=== PATIENT | male | born 1950 | race Caucasian/White ===

== ENCOUNTER → 2024-02-13 12:12 | Outpatient (REF) | payer MEDICARE, SELFPAY | LOC: RAD 12:12 | PROVIDERS: ATTENDING PHYSICIAN Internal Medicine Cardiovascular Disease; OTHER PHYSICIAN Family Medicine | DX: I65.22 Occlusion and stenosis of left carotid artery (principal) | CPT/HCPCS: 93880 ==

== ENCOUNTER → 2024-03-06 12:54 | Outpatient (REF) | payer MEDICARE, SELFPAY | LOC: HWRAD 12:54 | PROVIDERS: ATTENDING PHYSICIAN Surgery Vascular Surgery; FAMILY PHYSICIAN Family Medicine | DX: I65.23 Occlusion and stenosis of bilateral carotid arteries (principal) | CPT/HCPCS: 70496; 70498; Q9967 ==

== ENCOUNTER 2024-05-12 06:14 | Inpatient (IN) | payer MEDICARE, SELFPAY ==
[2024-05-07 09:19] VITALS: BMI 27.5
[2024-05-07 10:22] LABS: % Basophils 0.4 % (0-2); % Eosinophils 1.5 % (0-6); % Immature Granulocytes 0.6 % (0-0.5); % Lymphocytes 17.4 % (20.5-51.1); % Monocytes 10.4 % (1.7-9.3); % Neutrophils 69.7 % (42.2-75.2); Absolute Eosinophils 0.1 10^3/uL (0-0.7); Absolute Lymphocytes 0.9 10^3/uL (1.2-3.4); Absolute Monocytes 0.6 10^3/uL (0.1-0.6); Absolute Neutrophils 3.8 10^3/uL (1.4-6.5); Hematocrit 45.4 % (39.0-52.0); Hemoglobin 15.4 g/dL (13.0-18.0); Mean Corp Hgb Conc. 33.9 g/dL (33.0-37.0); Mean Corpuscular Hgb 30.9 pg (27.0-31.0); Mean Platelet Volume 9.4 fL (7.4-10.4); Nucleated Red Blood Cells % 0 % (-); Platelet Count 161 10^3/uL (130-400); Red Blood Cell Count 4.99 10^6/uL (4.70-6.10); Red Cell Dist. Width 13.4 % (11.5-14.5); White Blood Cell Count 5.4 10^3/uL (4.8-10.8)
[2024-05-07 10:31] LABS: INR 1.11; PT 14.4 Sec (11.4-14.6)
[2024-05-07 10:32] LABS: APTT 35.5 Sec (23.4-35.0)
[2024-05-07 10:55] LABS: Blood Urea Nitrogen 27 mg/dl (9-20); Calcium 9.7 mg/dl (8.4-10.2); Carbon Dioxide 30 mmol/L (22-30); Chloride 101 mmol/L (98-107); Estimated Creatinine Clearance 47 ml/min; Glucose 108 mg/dl (70-99); Potassium 5.3 mmol/L (3.5-5.1); Sodium 141 mmol/L (135-145); eGFR 56.93
[2024-05-12] VITALS (9 sets, daily range): BP systolic 125–163; BP diastolic 66–118; BMI 27.5
[2024-05-12] MEDS: PERIDEX 0.12% ORAL RINSE 15 ML PO (07:05)
[2024-05-12] MEDS: BACTROBAN NASAL 1 GRAM NASAL (07:05)
[2024-05-12] MEDS: NSS 500 IV (07:05)
--- NOTE | 2024-05-12 07:07 | HP.FOC2 ---
Focused History & Physical
Chief Complaint
HPI:
Chief Complaint: Left carotid stenosis
HPI / Indication for Planned Procedure: This is a 74-year-old male who presents today for scheduled procedure of a left carotid endarterectomy for asymptomatic left carotid stenosis. He reports he is in good health and denies recent
hospitalization, trauma, or illness. He reports no changes in medications since last seen in the office.
Relevant Past Medical History: Other (Gout, insomnia, nasal fracture, basal cell carcinoma, colon polyps, low vitamin D, depression, migraines, BPH, paroxysmal atrial fibrillation)
Relevant Social History: Negative
Relevant Family History: Positive for (Paternal hyperlipidemia and abdominal aortic aneurysm, maternal lung cancer)
Relevant Past Surgical History: Positive for (Cholecystectomy, tonsillectomy, colonoscopy, nasal cauterization, right TKA, right L4-L5 interlaminar epidural, right hip replacement)
Review of Systems
Review of Pertinent Systems: All Systems Negative
Medication
See Medication form for detailed medications: Yes
Medication List (including Herbals & OTC):
allopurinol 300 mg tablet 300 mg PO NOON 10/07/16
fluoxetine 40 mg capsule (Prozac) 40 mg PO NOON 10/07/16
atorvastatin 10 mg tablet 10 mg PO NOON 09/25/18
finasteride 5 mg tablet 5 mg PO QPM 09/25/18
metoprolol tartrate 25 mg tablet 25 mg PO NOON 09/25/18
niacinamide 500 mg tablet 500 mg PO DAILY 09/25/18
omeprazole 40 mg capsule,delayed release 40 mg PO DAILY 09/25/18
cholecalciferol (vitamin D3) 50 mcg (2,000 unit) tablet 2,000 units PO NOON 06/27/20
polyethylene glycol 3350 17 gram oral powder packet 17 grams PO PRN PRN constipation 06/27/20
tamsulosin 0.4 mg capsule 0.4 mg PO NOON 06/27/20
docusate sodium 100 mg capsule 100 mg PO DAILY PRN CONSTIPATION 05/04/24
magnesium 200 mg tablet 400 mg PO NOON 05/04/24
metformin 500 mg tablet 500 mg PO BID 05/04/24
rivaroxaban 20 mg tablet (Xarelto) 20 mg PO NOON 05/04/24
ropinirole 3 mg tablet 3 mg PO HS 05/04/24
sennosides 8.6 mg tablet (senna) 8.6 mg PO PRN PRN CONSTIPATION 05/04/24
Medications Reviewed: Yes
Allergies and Reactions
Patient has Allergies: Yes
Noted Allergies and Reactions:
Allergy/AdvReac Type Severity Reaction Status Date / Time
Sulfa (Sulfonamide Allergy Unknown - Verified 05/04/24 16:16
Antibiotics) a long
time ago
Pertinent Physical Exam
All Other Systems: Negative
Head/Neck: Normal
Lungs: Normal (Bilateral lungs clear to auscultation)
Heart: Normal (RRR, S1-S2, no murmurs, bilateral DP +2 palpable)
Abdomen: Normal (Nontender and nondistended)
Extremities: Normal
Neurological: Normal
Diagnosis / Assessment
Assessment: 74-year-old male with left carotid stenosis
Plan / Procedure
Plan:
Will proceed as scheduled for left carotid endarterectomy with Dr. Johny Jaeger III
Anesthesia/Sedation to be done by Anesthesia Provider: Yes
--- NOTE | 2024-05-12 08:08 | W.SUR.PREOP ---
Pre-Operative Surgical Note
-
I have examined this patient prior to the performance of the scheduled procedure.
The patient's condition is unchanged from the time of the current History and
Physical and the patient is able to undergo the scheduled procedure.
[2024-05-12 08:55] LABS: ACT-LR - POC 306 Seconds (116-155)
[2024-05-12 09:30] LABS: ACT-LR - POC 271 Seconds (116-155)
--- NOTE | 2024-05-12 10:04 | W.SUR.POST ---
Surgical Immediate Post Op
Note
Pre Op Diagnosis: LEFT Carotid Stenosis
Post Op Diagnosis: LEFT Carotid Stenosis
Procedure Performed: LEFT Carotid Endarterectomy
Primary Surgeon: Johny Jaeger MD
Secondary Surgeons: Cliff Amaro MD, PhD
Anesthesia: Per Anesthesia
Estimated Blood Loss: 50 cc
Fluids: Per Anesthesia
Drains/Shunts: None
Specimens/Cultures: None
Doppler/Duplex/Angio (Y/N): None
Complications: None
Operative Findings: Uncomplicated LEFT carotid endarterectomy
--- NOTE | 2024-05-12 10:15 | OR.RPT ---
Operative Report
Operative Report
Date of Operation: 05/12/2024
Pre Op Diagnosis: High-grade stenosis left internal carotid artery, asymptomatic
Post Op Diagnosis: High-grade stenosis left internal carotid artery, asymptomatic
Procedure: LEFT carotid endarterectomy with patch angioplasty using bovine pericardium
Surgeon: Johny Jaeger III, MD
Medicaid Service Coordinator: Cliff Amaro MD PhD PGY-6
Anesthesia: General
Complications: None
Estimated blood loss: 50 cc
History and Indications for Procedure: 74-year-old male with high-grade stenosis of the left internal carotid artery.
Procedure in Detail: Angelo Garcia was correctly identified and placed supine on the operating table. After adequate induction of anesthesia the left neck was positioned, prepped and draped in the usual sterile fashion. Preoperative antibiotics were
administered. A timeout procedure was performed with the nursing and anesthesia staff confirming the patients identity as well as the nature and laterality of the procedure.
The carotid bifurcation was marked with ultrasound at the beginning of the case. The incision was planned accordingly. An incision was made along the anterior border of the left sternocleidomastoid muscle. Electrocautery was used to divide the
subcutaneous tissue and platysma. The carotid sheath was entered with sharp dissection. The internal jugular vein was retracted laterally. The vagus nerve was identified and protected throughout the case. The common carotid artery was identified at
the base of this incision and carefully encircled with a vessel loop. The patient was systemically heparinized. The dissection was continued distally towards the carotid bifurcation. The facial vein was skeletonized, ligated and divided between silk
ties and clips. There was a small tear near the crotch of the facial vein and internal jugular vein which was successfully repaired with interrupted 5-0 Prolene sutures. The proximal external carotid artery was encircled with a vessel loop. The
distal internal carotid artery was encircled with a vessel loop at a soft spot on the artery beyond the plaque. The hypoglossal nerve was identified and protected.
The internal vessel loop was secured followed by the common and external. An arteriotomy was made on the distal common carotid artery with an 11-blade. This was extended proximally and distally with Lovett scissors. The arteriotomy was extended
distally through the plaque to an area of normal appearing internal carotid artery. The distal vessel loop was replaced with a short tip hockey-stick type vascular clamp. An endarterectomy was performed with a Corinth elevator in the standard
fashion. The proximal extent of the plaque was transected with scissors. The distal end of the plaque in the internal carotid artery feathered very nicely with no distal intimal flap identified. The plaque extending into the external carotid artery
was everted. Once the plaque was fully removed the endarterectomy plane was irrigated with heparinized saline and any loose fronds of tissue were removed. A pre-cut piece of bovine pericardium was sewn in place using a running 6-0 Prolene suture.
Prior to the completion of the patch the common carotid was allowed to forward bleed and the external was allowed to back bleed. The area under the patch was irrigated with heparinized saline to remove any potential thrombus or debris. The
anastomosis was completed.
The external vessel loop was released first, followed by the common and then the internal. There was an excellent pulse in the distal internal carotid artery. An excellent quality Doppler signal in the distal internal carotid artery was also
confirmed. The patch suture line was closely inspected for hemostasis and was achieved. Protamine was administered. Hemostasis was achieved in the wound bed. The wound was irrigated with saline solution.
The wound was then closed in layers. Sterile dressings were applied. The patient awoke from anesthesia with no immediate neuro deficits and was taken to the PACU in stable condition.
Attestation: I was present and responsible for the entire procedure
Signed: Johny Jaeger III, MD
[facility]
[phone] (prhs)
[2024-05-12 10:35] LABS: Glucose - Point of Care 128 mg/dl (70-99)
[2024-05-12] MEDS: CARDENE 200 IV (10:58)
[2024-05-12 11:00] LABS: Hematocrit 40.1 % (39.0-52.0); Hemoglobin 13.8 g/dL (13.0-18.0); Mean Corp Hgb Conc. 34.4 g/dL (33.0-37.0); Mean Corpuscular Hgb 30.3 pg (27.0-31.0); Mean Corpuscular Volume 87.9 fL (80.0-94.0); Mean Platelet Volume 9.1 fL (7.4-10.4); Platelet Count 145 10^3/uL (130-400); Red Blood Cell Count 4.56 10^6/uL (4.70-6.10); Red Cell Dist. Width 13.7 % (11.5-14.5); White Blood Cell Count 10.1 10^3/uL (4.8-10.8)
--- NOTE | 2024-05-12 11:09 | W.PN.UPDATE ---
Update Note
Progress Note Update
Patient seen and examined in the recovery room. He is awake and alert. Able to move upper extremities at the shoulder and elbow. He has inability to move the wrist and fingers on the right. Normal motor function in the left hand. Gross motor
function in the legs is intact and symmetric. No facial asymmetry. No complaints otherwise.
Will proceed with stat CT angiogram of the head and neck
MRI of the brain has been ordered
I communicated with neurology who will see the patient
I updated his .
Johny Jaeger III, MD
[facility]
[phone] (dpss)
[2024-05-12 11:10] LABS: APTT 31.6 Sec (23.4-35.0); INR 1.08; PT 13.8 Sec (11.4-14.6)
[2024-05-12 11:17] LABS: Blood Urea Nitrogen 22 mg/dl (9-20); Calcium 8.5 mg/dl (8.4-10.2); Carbon Dioxide 25 mmol/L (22-30); Chloride 105 mmol/L (98-107); Estimated Creatinine Clearance 55 ml/min; Glucose 139 mg/dl (70-99); Potassium 4.7 mmol/L (3.5-5.1); Sodium 139 mmol/L (135-145); eGFR > 60.00
[2024-05-12] MEDS: NSS 1000 IV ×2 (11:53→23:53)
--- NOTE | 2024-05-12 12:00 | PTCARENOTE ---
received pt from vascular lab , post L CEA , pt NSR on monitor , BP elevated and 160s , on Cardene gtt for goal < 165, NIHSS on arrival 2, at bedside
--- NOTE | 2024-05-12 12:09 | PTCARENOTE ---
Patient was transported to cat-scan after given ICU report. He remains stable on Cardene 2.5mg/hr 12.5cc. He denies any pain some improvement to right arm movement, unable to make a fist or move right hand. Post cat-scan patient was transported to
ICU
[2024-05-12] MEDS: NOVOLOG FLEXPEN-LOW RESISTANCE SC (12:18)
--- NOTE | 2024-05-12 12:19 | W.PN.INTV ---
Today's Communication / Plan
Recommendations
Monitor patient following his Left Carotid Endarterectomy. Move forward with discharge once patient reaches his functional baseline.
Assessment
-
Assessment: Patient is a 74-year-old male who is seen for a elective left carotid endarterectomy with patch angioplasty using bovine pericardium for asymptomatic left carotid stenosis. He has a past medical history of paroxysmal atrial
fibrillation, BPH, basal cell carcinoma, gout, insomnia, nasal fracture, colon polyps, diverticulosis, depression, and migraines. Patient has undergone cholecystectomy, tonsillectomy, nasal cauterization, and right hip replacement. Following
completion of the procedure the patient awoke from anesthesia with no immediate neurological deficits and was taken to the PACU in stable condition. In the recovery room the patient was able to move his upper extremities at the shoulder and elbow
but was unable to move his wrist and fingers on the right side. There was normal motor function in the left hand and gross motor function in the legs is intact and symmetric. No facial asymmetry seen. Patient transferred to the ICU for further
monitoring.
Chronic Medical Conditions: Paroxysmal atrial fibrillation, essential hypertension, BPH, basal cell carcinoma, gout, insomnia, nasal fracture, colon polyps, diverticulosis, depression, migraines,
Impression:
#Right wrist and finger weakness
#Left Carotid Stenosis
S/P Left Carotid Endarterectomy on 05/02/24
#Paroxysmal atrial fibrillation
#Diverticulosis
#Essential hypertension
Plan:
-Postoperative surgical intensive care unit monitoring
-Supplemental oxygen as needed
-Incentive spirometry
-Aspiration precautions
-Nebulizer use if needed�currently not bronchospastic
-Chest x-ray on 05/07 showed no active pulmonary process
-Neuro and vascular checks as per protocol
-Left hand and wrist weakness - CT head showed no acute pathology - MRI ordered
-Neurology consulted
-Vascular surgery following- correspondence and operative notes reviewed
-Monitor blood pressure
-Allow for mild permissive hypertension
-Cardene drip if needed
-Follow hemoglobin - currently 13.8 on 05/12
-Patient hemodynamically stable
-Follow blood glucose - currently 139 on 05/12
-Low resistance Insulin sliding scale initiated
-DOACs being held until cleared by vascular surgery
-1800 calorie diabetic diet
-Early mobilization as tolerated
Data:
CXR on 05/07/2024: No active pulmonary process. No focal airspace disease. No pleural effusions or pneumothorax.
CT head and neck angio without IV contrast on 05/12/2024: No acute pathology identified. No evidence of M1 nor M2 occlusion. No carotid dissection. Postsurgical change of the left neck. Multilevel degenerative disc disease of the cervical spine.
Subjective Dataa
Subjective Data
Date of Service:
Date of Service: May 12, 2024
Patient is calm and pleasant in conversation. He denies any pain. He notes some improvement to right arm movement but is unable to make a fist and has difficulty moving his right hand.
Objective Data
Data Reviewed
Vital Signs / I&O / Oxygen:
Vital Signs
Temp Pulse Resp BP Pulse Ox
98.2 F 82 14 148/79 96
05/12/24 11:00 05/12/24 11:00 05/12/24 11:00 05/12/24 11:00 05/12/24 11:00
Intake and Output
05/11/24 05/12/24 05/13/24
06:59 06:59 06:59
Intake Total 200 / 200
Balance 200 / 200
SaO2 96
Nasal Cannula flow liters per 2
minute
Physical Exam
General: Comfortable
HEENT: Normocephalic and Anicteric
Cardiovascular: Regular Rhythm
Respiratory: Clear and Non-Labored Respirations
GI: Soft, Non Distended, Non Tender and Normal Bowel Sounds
Neurology: Awake, Alert and Oriented
Labs/Micro/Reports
Lab Data
05/12/24 10:43
05/12/24 10:43
Laboratory Results
05/12/24
10:43
PT 13.8
INR 1.08
APTT 31.6
--- NOTE | 2024-05-12 12:34 | CON.NEURO4 ---
Addendum entered and electronically signed by Becky Knowles DO 05/12/24 14:38:
I have personally examined the patient. I agree with the CUTTING MACHINE TENDER HELPER's Note.
My addenda:
74 year-old male with R hand>R upper arm weakness and some RUE dysmetria s/p L CEA done earlier today. Agree with exam as documented below; NIHSS is 2. Agree with differential. CTA negative for LVO. MRI brain pending. LDL/HgbA1C ordered.
Continue atorvastatin. Anticoagulation is on hold s/p surgery. Reviewed with vascular--cleared for ASA 81mg daily; will give now. Needs PT/OT evaluations, Nihss/neurochecks. No need for echo as it will not change management lead. Reviewed at length
with patient and his . Will c/t follow.
Original Note:
Documented by User: Luisa Keating NP 05/12/24 14:21
Consultation - Neurology 4
-
CONSULTING PHYSICIAN: Becky Knowles DO
REFERRING PHYSICIAN: Vascular Surgery/Dr. Jaeger
DICTATED BY: VICTOR MANUEL Taylor
DATE/TIME OF REQUEST: 05/12/24
DATE/TIME OF CONSULTATION: 05/12/24
Reason for Consultation: RUE weakness
History of Present Illness:
This is a 74-year-old right-handed male who has presented to the hospital today for scheduled left carotid endarterectomy for asymptomatic high-grade left internal carotid stenosis. CTA imaging from 03/06/24 was suggestive of L ICA 80% stenosis. He
is taking Xarelto for paroxysmal Afib and held this medication prior to surgery today, his last dose was on 04/08/24 in the evening. Patient reports that prior to the procedure he felt at his baseline. L CEA was uncomplicated this morning. Upon
awakening postoperatively, his RUE was noted to be newly weak, prompting Neurology consult. Patient denies paresthesias or associated right leg symptoms. CTA head/neck was obtained and is negative for any acute abnormality/LVO. He is not a candidate
for TNK/IAT due to major surgery today and no LVO. Patient denies any neck/back pain, headache, dizziness, vision changes, speech/swallow difficulty, numbness, nausea, chest pain, palpitations, and shortness of breath. He denies any history of TIA,
stroke, or RUE weakness like this in the past.
Past Medical History: Paroxysmal Afib (Xarelto), L ICA stenosis, migraines, RLS, syncope, insomnia, BPH, lumbar radiculopathy, elevated blood glucose, GERD, IBS, depression, basal cell carcinoma, colon polyps, nasal fracture, gout, vitamin D
deficiency
Surgical History: Cholecystectomy, tonsillectomy, R TKA, R THR, nasal cauterization, R L4-L5 IL ELFEGO
Family History: Reviewed and noncontributory.
Social History: Drinks one glass of wine daily. Denies tobacco and illicit drug use.
Allergies: Sulfa.
Home Medications: See below.
Review of Symptoms:
Patient denies any fever, headache, chest pain, shortness of breath, GI or symptoms.
�Per the HPI.�All systems are reviewed negative except above.
Physical Exam:
The patient is afebrile, abdomen is nondistended, breathing is unlabored, skin is warm and dry, no edema.
NIH Stroke Scale:
I performed the NIH stroke scale on the patient on 05/12/24 at 1200. The patient scored 2 points on the NIH stroke scale assessment, which were assigned as follows:
Neurologic Examination:
The patient is drowsy postoperatively, opens eyes to voice. He is oriented x 3. He is able to follow commands and answer questions appropriately. There is no aphasia or dysarthria. On cranial nerve assessment, pupils are 3 mm bilateral, round and
reactive to light and accommodation. Visual ravi are full. Extraocular movements are intact. Facial sensations are intact and bilaterally symmetrical, there is no facial asymmetry. Hearing is intact bilaterally to normal conversation volume.
Tongue palate and uvula are midline. Sternocleidomastoid strengths are full bilaterally. Motor strengths are 5/5 left upper, 4/5 right upper, and 5/5 bilateral lower extremities on medical research [place] scale. There is mild pronator drift in the
RUE. No involuntary movement noted. Deep tendon reflexes are 1+ bilateral upper and lower extremities and Babinski is absent bilaterally. Sensations of touch, temperature and vibration are intact and bilaterally symmetrical. There was no extinction
noted on double simultaneous stimulation. Coordination is ataxic by finger to nose in the RUE.
Lab Results: See below.
Neuro Imaging:
1. CTA Head/Neck 05/12/24: No acute pathology identified. No evidence of M1 nor M2 occlusion. No carotid dissection. Postsurgical change of the left neck. Multilevel degenerative disc disease of the cervical spine.
2. CTA head/neck 03/06/24: Approximately 80% stenosis of the proximal left internal carotid artery. No flow-limiting stenosis of the right internal carotid artery. Intracranial vessels show no major branch vessel occlusion, flow-limiting stenosis,
aneurysm formation, or dissection. No acute intracranial abnormality.
Differentials for the patient's presentation include:
1. Acute onset right upper extremity weakness/ataxia in the setting of L CEA today and Xarelto on hold since 05/09/24 concerning for acute small left hemisphere ischemic infarct.
2. Peripheral nerve palsy related to surgical positioning possibly producing RUE weakness but exam findings and lack of sensation change or any discomfort less supportive of this diagnosis.
3. Paroxysmal Afib, Xarelto on hold.
Patient has the following risk factors for their symptoms: Afib (Xarelto on hold), L CEA, HTN, HLD, age
IV Tenecteplase/IAT candidacy: He is not a candidate for TNK/IAT due to major surgery today and no LVO.
Recommendations:
-Resume home Xarelto when cleared postoperatively by Vascular Surgery.
-Permissive hypertension SBP<220, DBP<120 until 1100 tomorrow, then goal normotension. Avoid hypotension.
-MRI brain noncontrast urgent pending.
-NIHSS and neurological checks per unit guidelines.
-Check TTE to complete stroke workup.
-Provide patient with a stroke education packet.
-LDL goal <70. Lipid panel pending. Okay to continue home atorvastatin 10mg daily until results are obtined.
-Goal normoglycemia, hbA1c is pending.
-PT/OT evaluations.
-DVT prophylaxis.
-Will follow pending results.
Discussed patient care with: Dr. Knowles, the patient
Vital Signs and Labs
-
Vital Signs and Labs:
Vital Signs
Temp Pulse Resp BP Pulse Ox
98.2 F 82 14 148/79 96
05/12/24 11:00 05/12/24 11:00 05/12/24 11:00 05/12/24 11:00 05/12/24 11:00
Lab Results
05/12/24 10:43
05/12/24 10:43
PT 13.8 Sec (11.4-14.6) 05/12/24 10:43
INR 1.08 05/12/24 10:43
APTT 31.6 Sec (23.4-35.0) 05/12/24 10:43
Sodium 139 mmol/L (135-145) 05/12/24 10:43
Potassium 4.7 mmol/L (3.5-5.1) 05/12/24 10:43
BUN 22 mg/dl (9-20) H 05/12/24 10:43
Glucose 139 mg/dl (70-99) H 05/12/24 10:43
Calcium 8.5 mg/dl (8.4-10.2) 05/12/24 10:43
Medications
-
Active Medications
Generic Name Dose Route Start Last Admin
Trade Name Freq PRN Reason Stop Dose Admin
Acetaminophen 650 mg 05/12/24 09:12
Acetaminophen 325 Mg Tablet PO 06/09/24 09:11
Q4HPRN PRN
mild pain or temp >/= 100.4 F
Bisacodyl 10 mg 05/12/24 09:12
Bisacodyl 10 Mg Rectal Suppository RECTAL 06/09/24 09:11
DAILYPRN PRN
constipation
Dextrose 12.5 grams 05/12/24 09:58
Dextrose 50% (0.5 Grams/Ml) 50 Ml Syringe IV 06/09/24 09:57
[id number] PRN
hypoglycemia
Protocol
Glucagon 1 mg 05/12/24 09:58
Glucagon 1 Mg Vial IM 06/09/24 09:57
PRN PRN
hypoglycemia
Protocol
Heparin Sodium 5,000 units 05/12/24 20:00
Heparin 5,000 Units/Ml 1 Ml Vial SC 06/09/24 19:59
Q12 IDALIA
Hydromorphone HCl 0.25 mg 05/12/24 07:32
Hydromorphone 0.25 Mg/0.5 Ml Syringe IV 05/13/24 07:32
PACU-Q5MPRN PRN
severe pain
Hydromorphone HCl 0.5 mg 05/12/24 09:12
Hydromorphone 0.5 Mg/0.5 Ml Syringe IV 05/26/24 09:11
Q2HPRN PRN
severe pain
Sodium Chloride 500 mls @ 40 mls/hr 05/12/24 06:00 05/12/24 07:05
Nss IV 05/12/24 18:29 500 mls
.[id number] IDALIA Administration
Parenteral Electrolytes 1,000 mls @ 100 mls/hr 05/12/24 07:45
Normosol-R IV 05/13/24 07:32
PER PROTOCOL IDALIA
Sodium Chloride 1,000 mls @ 80 mls/hr 05/12/24 09:15 05/12/24 11:53
Nss IV 1,000 mls
.[id number] IDALIA Administration
Nicardipine/Sodium Chloride 40 mg in 200 mls @ 0 mls/hr 05/12/24 09:30 05/12/24 10:58
Cardene IV 200 mls
PER PROTOCOL IDALIA Administration
Protocol
Per Protocol
Phenylephrine HCl 50 mg in 250 mls @ 0 mls/hr 05/12/24 09:30
Kailash-Synephrine IV
PER PROTOCOL IDALIA
Protocol
Per Protocol
Insulin Aspart 0 units 05/12/24 11:30 05/12/24 12:18
Insulin Aspart Low Resistance 300 Units/3 Ml Pen.Injctr SC 06/09/24 11:29 Not Given
AC IDALIA
Protocol
Morphine Sulfate 1 mg 05/12/24 07:32
Morphine 2 Mg/Ml Syringe IV 05/13/24 07:32
PACU-Q5MPRN PRN
moderate pain
Ondansetron HCl 4 mg 05/12/24 07:32
Ondansetron 4 Mg/2 Ml Vial IV 05/13/24 07:32
PACU-ONCEPRN PRN
nausea/vomiting
Oxycodone HCl 5 mg 05/12/24 09:12
Oxycodone 5 Mg Regular Release Tablet PO 05/26/24 09:11
Q4HPRN PRN
moderate pain
Sodium Chloride 0 flush 05/12/24 10:00
Sodium Chloride 0.9% (Flush) Syringe IV 06/09/24 09:59
PER PROTOCOL IDALIA
Home Medications
�Medication �Instructions �Recorded
allopurinol 300 mg tablet 300 mg PO NOON 10/07/16
fluoxetine 40 mg capsule (Prozac) 40 mg PO NOON 10/07/16
atorvastatin 10 mg tablet 10 mg PO NOON 09/25/18
finasteride 5 mg tablet 5 mg PO QPM 09/25/18
metoprolol tartrate 25 mg tablet 25 mg PO NOON 09/25/18
niacinamide 500 mg tablet 500 mg PO DAILY 09/25/18
omeprazole 40 mg capsule,delayed 40 mg PO DAILY 09/25/18
release
polyethylene glycol 3350 17 gram 17 grams PO PRN PRN constipation 06/27/20
oral powder packet
tamsulosin 0.4 mg capsule 0.4 mg PO NOON 06/27/20
magnesium 200 mg tablet 400 mg PO NOON 05/04/24
metformin 500 mg tablet 500 mg PO BID 05/04/24
rivaroxaban 20 mg tablet (Xarelto) 20 mg PO NOON 05/04/24
ropinirole 3 mg tablet 3 mg PO HS 05/04/24
sennosides 8.6 mg tablet (senna) 8.6 mg PO PRN PRN CONSTIPATION 05/04/24
NIH Stroke Score
Subsequent NIH Scale
Date of Subsequent NIH Scale: 05/12/24
Time of Subsequent NIH Scale: 12:00
NIH Stroke Score
Level of Consciousness: 0 - Alert
LOC Questions: 0-Answers both correctly
LOC Commands: 0-Performs both correctly
Best Horizontal Gaze: 0-Normal
Visual Ravi: 0=Normal, no visual loss
Facial Palsy: 0=Normal, symmetrical
Motor - Right Arm: 1=Drift < 10 seconds
Motor - Left Arm: 0=No drift 10 seconds
Motor - Right Le-No drift 5 seconds
Motor - Left Le-No drift 5 seconds
Limb Ataxia: 1-Present in one limb
Sensation: 0-Normal
Best Language: 0-No aphasia
Dysarthria: 0-Normal
Extinction and Inattention: 0-No abnormality
Total Score:: 2
Modified Baker (mRS) Score
Modified Baker Scale (mRS): Slight disability. Able to look after own affairs.
Score: 2
Alteplase Contraindication
Inclusion and Exclusion criteria reviewed: Yes
Reasons for NON-Tx with Thrombolytics POSSIBLE Exclusions: Major surgery or serious trauma within proceding 14 days
IAT Contraindications: Imaging doesn't show large vessel occlusion as cause of stroke

Documented by User: Becky Knowles DO 05/12/24 14:26
NIH Stroke Score
NIH Stroke Score
Total Score:: 2
Modified Baker (mRS) Score
Score: 2
[2024-05-12] MEDS: TYLENOL 650 MG PO (14:33)
[2024-05-12] MEDS: ASPIR LOW (ENTERIC COATED) 81 MG PO (15:54)
[2024-05-12 16:26] LABS: HDL Cholesterol 59 mg/dl; LDL Cholesterol, Calculated 58 mg/dl; Total Cholesterol 131 mg/dl (50-199); Triglyceride 71 mg/dl (10-149); Very Low Density Lipoprotein 14 mg/dl (0-30)
--- NOTE | 2024-05-12 16:46 | PTCARENOTE ---
pt NIHSS now 0 , he continues to have weak hand grasp on R , seen by neurology , off Cardene gtt for 3 hours and now back on his BP 165 and above , he stated he did not take any of his medications today prior to surgery including his
antihypertensives , at bedside , NSR on monitor , occasional afib , at bedside
[2024-05-12 16:48] LABS: Glucose - Point of Care 150 mg/dl (70-99)
[2024-05-12 16:56] LABS: TSH Reflex To Free T4 1.95 uIU/ml (0.47-4.68)
[2024-05-12] MEDS: REQUIP 3 MG PO ×2 (16:56→22:08)
[2024-05-12 17:31] LABS: Folate 7.3 ng/ml (2.76-20); Vitamin B12 461 pg/ml (239-931)
[2024-05-12] MEDS: ROXICODONE 5 MG PO (18:03)
[2024-05-12] MEDS: PROSCAR 5 MG PO (18:03)
[2024-05-12] MEDS: NOVOLOG FLEXPEN-LOW RESISTANCE 1 UNITS SC (18:38)
[2024-05-12] MEDS: HEPARIN 5000 UNITS SC (20:15)
[2024-05-12] MEDS: DILAUDID 0.25 MG IV (20:38)
--- NOTE | 2024-05-12 21:01 | PTCARENOTE ---
patient report received, assessments per work list. handoff NIH completed with off going RN. right hand with weak hand grasp, right arm mildly ataxic. patient c/o intermittent 'tingling' in right arm. c/o teeth pain, mild left neck pain. denies
chest pain, nausea. monitor nsr, Cardene per work list. arterial line with good blood return, waveforms. Tile Layer GLUING MACHINE OPERATOR updated with above changes. ekg completed, one time dose Dilaudid given for pain. lungs clear, diminished@bases. left neck
incision approximated. voiding adequate amounts yellow urine. call ivey in reach
[2024-05-12 21:50] LABS: Glucose - Point of Care 163 mg/dl (70-99)
[2024-05-13] VITALS (10 sets, daily range): BP systolic 105–142; BP diastolic 60–90; PULSE 70–95; O2SAT 94–95; BMI 28.3
--- NOTE | 2024-05-13 00:15 | PTCARENOTE ---
patient reassessed. still with right hand weakness. unable to move fingers, intermittent tingling. able to lift arm off the bed. unchanged from initial assessment. cardene weaned to off, placed on room air. denies pain. call ivey in reach
[2024-05-13 03:35] LABS: Hematocrit 38.7 % (39.0-52.0); Hemoglobin 13.2 g/dL (13.0-18.0); Mean Corp Hgb Conc. 34.1 g/dL (33.0-37.0); Mean Corpuscular Hgb 30.7 pg (27.0-31.0); Mean Platelet Volume 9.5 fL (7.4-10.4); Platelet Count 142 10^3/uL (130-400); Red Cell Dist. Width 13.4 % (11.5-14.5); White Blood Cell Count 12.5 10^3/uL (4.8-10.8)
--- NOTE | 2024-05-13 03:42 | PTCARENOTE ---
patient reassessed. patient with transient self limited word finding difficulty and mild slur when awakened. Warp Drawer TIPPLE OILER at bedside to assess. resolved when patient more awake. patient states the requip 'makes me goofy'. labs sent
[2024-05-13 03:47] LABS: INR 1.09; PT 13.9 Sec (11.4-14.6)
[2024-05-13 03:48] LABS: APTT 30.3 Sec (23.4-35.0)
[2024-05-13 03:57] LABS: Blood Urea Nitrogen 22 mg/dl (9-20); Calcium 8.4 mg/dl (8.4-10.2); Carbon Dioxide 25 mmol/L (22-30); Chloride 105 mmol/L (98-107); Estimated Creatinine Clearance 55 ml/min; Glucose 139 mg/dl (70-99); Potassium 4.6 mmol/L (3.5-5.1); Sodium 140 mmol/L (135-145); eGFR > 60.00
[2024-05-13] MEDS: TYLENOL 650 MG PO (04:35)
--- NOTE | 2024-05-13 05:33 | PTCARENOTE ---
tiger text to vascular to update on transient word finding difficulty and slur.
[2024-05-13 07:15] LABS: Glucose - Point of Care 129 mg/dl (70-99)
--- NOTE | 2024-05-13 07:26 | PTCARENOTE ---
bedside report received from handle rounder operator. NIHSS score 1 for right UE weakness. speech intact, no slurred or garbled speech noted. A-line intact and correlating with BP cuff. on RA, no s/s of resp distress. c/o headache unrelieved by Tylenol, Oxy 5
mg PRN admin. in for MRI this AM. cont to monitor the patient
[2024-05-13] MEDS: HEPARIN 5000 UNITS SC ×2 (07:32→20:54)
[2024-05-13] MEDS: ROXICODONE 5 MG PO ×2 (07:32→16:27)
[2024-05-13] MEDS: NOVOLOG FLEXPEN-LOW RESISTANCE SC ×3 (07:32→17:40)
[2024-05-13 07:55] LABS: Glycohemoglobin (HgbA1c) 5.6 % (4.0-5.6)
[2024-05-13] MEDS: PROTONIX 40 MG PO (07:56)
[2024-05-13] MEDS: ASPIR LOW (ENTERIC COATED) 81 MG PO (07:57)
[2024-05-13] MEDS: GLUCOPHAGE 500 MG PO ×2 (07:57→18:01)
--- NOTE | 2024-05-13 08:55 | W.PN.NEURO.1 ---
Addendum entered and electronically signed by Becky Knowles DO 05/13/24 16:53:
Earliest clearance to switch back to anticoagulation would be 3 days from stroke onset given stroke size given risk of hemorrhagic conversion.
Addendum entered and electronically signed by Becky Knowles DO 05/13/24 16:48:
Studies reviewed.
I have personally examined the patient. I agree with the DELI WORKER's Note.
My addenda: 74 year-old male with left frontal lobe infarcts resulting in RUE weakness. Agree with exam and plan as documented below. Resume home Xarelto when cleared postoperatively by Vascular Surgery. Until able to resume Xarelto, continue
aspirin 81mg daily. continue PT/OT. May need acute rehab.
Should f/u in the neurology clinic in ~1-2 mos.
Reviewed s/s of stroke, importance of calling 911 should these recur.
Neurology is signing off. Please call with any further questions.
Original Note:
Documented by User: Luisa Keating NP 05/13/24 16:42
Today's Communication / Plan
-
.
Neuro Assessment/Plan
Assessment
This is a 74-year-old RH male who presented to on 05/12/24 for scheduled left carotid endarterectomy for asymptomatic high-grade left internal carotid stenosis. He is taking Xarelto for paroxysmal Afib and held this medication prior to surgery,
his last dose was on 04/08/24 in the evening. Patient reports that prior to the procedure he felt at his baseline. L CEA was uncomplicated this morning. Upon awakening postoperatively, his RUE was noted to be newly weak. CTA head/neck was obtained
and is negative for any acute abnormality/LVO. He was not a candidate for TNK/IAT due to major surgery today and no LVO.
-CTA Head/Neck 05/12/24: No acute pathology identified. No evidence of M1 nor M2 occlusion. No carotid dissection. Postsurgical change of the left neck. Multilevel degenerative disc disease of the cervical spine.
-CTA head/neck 03/06/24: Approximately 80% stenosis of the proximal left internal carotid artery. No flow-limiting stenosis of the right internal carotid artery. Intracranial vessels show no major branch vessel occlusion, flow-limiting stenosis,
aneurysm formation, or dissection. No acute intracranial abnormality.
-MRI brain 05/13/24: Several small foci of acute to subacute infarction in the anterolateral left frontal lobe. Larger focal region of patchy foci of acute to subacute infarct involving the posterior left frontal lobe, with cortical involvement as
well as involvement of the centrum semiovale and coronal radiata.
-Acute small scattered left frontal lobe ischemic infarcts producing RUE weakness; etiology likely related to unstable L ICA plaque, less likely holding OAC.
-Paroxysmal Afib, Xarelto on hold.
Plan
-Resume home Xarelto when cleared postoperatively by Vascular Surgery. Until able to resume Xarelto, continue aspirin 81mg daily.
-Goal normotension. Avoid hypotension.
-NIHSS and neurological checks per unit guidelines.
-TTE will not alter treatment plan, deferred.
-Provide patient with a stroke education packet.
-LDL goal <70. LDL is 58. Increase home atorvastatin from 10mg to 40mg daily.
-Goal normoglycemia, hbA1c is 5.6.
-PT/OT evaluations.
-DVT prophylaxis.
-Patient should follow-up with Neurology as an outpatient in 4-6 weeks, may see the DELI WORKER or one of the physicians..
Subjective/Objective
Subjective Data
Date of Service: May 13, 2024
Patient reports transient slurred speech following taking double his usual dose of ropinirole last evening. Today, he notes ongoing RUE weakness and transient RUE decreased sensation, but denies any further speech issues. That was the first time he
has ever doubled his ropinirole dosage. He also endorses having a left-sided headache this morning that he rates an 8/10, relieved by PRN oxycodone. He denies any dizziness, vision changes, swallowing difficulty, nausea, chest pain, palpitations,
and shortness of breath.
Objective Data
Vital Signs
Temp Pulse Resp BP Pulse Ox
99.0 F 56 14 126/68 93
05/13/24 03:43 05/13/24 07:30 05/13/24 07:30 05/12/24 20:21 05/13/24 07:30
Lab Results
05/13/24 03:24
05/13/24 03:24
PT 13.9 Sec (11.4-14.6) 05/13/24 03:24
INR 1.09 05/13/24 03:24
APTT 30.3 Sec (23.4-35.0) 05/13/24 03:24
Sodium 140 mmol/L (135-145) 05/13/24 03:24
Potassium 4.6 mmol/L (3.5-5.1) 05/13/24 03:24
BUN 22 mg/dl (9-20) H 05/13/24 03:24
Glucose 139 mg/dl (70-99) H 05/13/24 03:24
Calcium 8.4 mg/dl (8.4-10.2) 05/13/24 03:24
LDL Cholesterol, Calc 58 mg/dl 05/12/24 10:43
Vitamin B12 461 pg/ml (239-931) 05/12/24 10:43
Patient Allergies
Sulfa (Sulfonamide Antibiotics) Allergy (Verified 05/04/24 16:16)
Unknown - a long time ago
LDL Level: <70, continue statin
Review of Systems
-
History Source: Patient
EENT: Negative Blurry Vision, Decreased Vision or Swallowing Difficulty
Respiratory: Negative Cough or Trouble Breathing
Cardiac: Negative Chest Pain or Palpitations
Abdomen/GI: Negative Nausea
Neuro: Headache, Weakness, Numbness and Ataxia; Negative Dizzy, Tremors or Speech Problem
Physical Exam
-
General: Well Developed, Well Nourished and No Apparent Distress
Eyes: No Ptosis and PERRLA
HEENT: Normocephalic and Atraumatic
Neck: Full Range of Motion
Respiratory: No Dyspnea
GI: Non-distended
Extremities: No Clubbing, No Cyanosis and No Edema
Psych: Unremarkable
Extended Neurological Exam
Mood & Affect: Mood Unremarkable and Affect Unremarkable
Attention Span & Concentration: Awake, Alert and Interactive
Memory: Unremarkable (AAOx3) and Able to Recall
Tremor: Hand Tremor Absent and Head Tremor Absent
Involuntary Movement: None
Speech: Quality Unremarkable, Quantity Unremarkable and Rate of Production Unremarkable
Cranial Nerve II: Left Eye: Pupillary Reactivity Unremarkable, Pupillary Size Unremarkable and Visual Ravi Intact
Cranial Nerve II: Right Eye: Pupillary Reactivity Unremarkable, Pupillary Size Unremarkable and Visual Ravi Intact
Cranial Nerves III, IV, : Extraocular Movement: Extraocular Movement Full in all Directions
Cranial Nerve V: Facial Sensation: Intact to Light Touch
Cranial Nerve VII: Facial Symmetry: Normal Facial Symmetry
Cranial Nerve VIII: Hearing: Unremarkable Hearing to Normal Conversational Volume
Cranial Nerves IX, X: Palate Movement: Palate Elevation Symmetric
Cranial Nerve XI: Shoulder Shrug: Reduced on Right
Cranial Nerve XII: Tongue Protusion: Midline
Muscle Strength, Overall: Reduced on Right (RUE 3+/5, R hand home inspector 1/5)
Muscle Bulk & Tone: Reduced Tone (R hand)
Pronator Drift: Drift in Right Lower Extremity
Touch Sensation: Double Simultaneous Stimulation Unremarkable
Coordination: KAIA Satellites around Right and Khbb-Brtd-Gjhf movements intact bilaterally; Negative Aabuwn-ekyj-qnjqzy Testing Unremarkable (RUE ataxia)
Babinski Sign: Absent Bilaterally
Modified [place] Score (MRS)
-
Modified [place] Scale (mRS): Moderate disability. Requires some help, able to walk unassisted.
Score: 3
Data Reviewed
-
CT-A: Report Reviewed and Image Reviewed
MRI Head: Report Reviewed and Image Reviewed
Labs: Report Reviewed
Lipid Profile: Report Reviewed
HgbA1C: Report Reviewed
Reviewed with: Physician and Family
Medications
-
Active Medications
Generic Name Dose Route Start Last Admin
Trade Name Freq PRN Reason Stop Dose Admin
Acetaminophen 650 mg 05/12/24 09:12 05/13/24 04:35
Acetaminophen 325 Mg Tablet PO 06/09/24 09:11 650 mg
Q4HPRN PRN Administration
mild pain or temp >/= 100.4 F
Allopurinol 300 mg 05/13/24 12:00 05/13/24 12:33
Allopurinol 300 Mg Tablet PO 06/10/24 11:59 300 mg
NOON IDALIA Administration
Aspirin 81 mg 05/13/24 08:00 05/13/24 07:57
Aspirin 81 Mg (Enteric Coated) Tablet PO 06/10/24 07:59 81 mg
DAILY IDALIA Administration
Atorvastatin Calcium 40 mg 05/13/24 16:38
Atorvastatin (Lipitor) 10 Mg Tablet PO 06/10/24 11:59
NOON IDALIA
Bisacodyl 10 mg 05/12/24 09:12
Bisacodyl 10 Mg Rectal Suppository RECTAL 06/09/24 09:11
DAILYPRN PRN
constipation
Dextrose 12.5 grams 05/12/24 09:58
Dextrose 50% (0.5 Grams/Ml) 50 Ml Syringe IV 06/09/24 09:57
[id number] PRN
hypoglycemia
Protocol
Finasteride 5 mg 05/12/24 18:00 05/12/24 18:03
Finasteride 5 Mg Tablet PO 06/09/24 17:59 5 mg
QPM IDALIA Administration
Fluoxetine HCl 40 mg 05/13/24 12:00 05/13/24 12:33
Fluoxetine 20 Mg Capsule PO 06/10/24 11:59 40 mg
NOON IDALIA Administration
Glucagon 1 mg 05/12/24 09:58
Glucagon 1 Mg Vial IM 06/09/24 09:57
PRN PRN
hypoglycemia
Protocol
Heparin Sodium 5,000 units 05/12/24 20:00 05/13/24 07:32
Heparin 5,000 Units/Ml 1 Ml Vial SC 06/09/24 19:59 5,000 units
Q12 IDALIA Administration
Hydromorphone HCl 0.5 mg 05/12/24 09:12
Hydromorphone 0.5 Mg/0.5 Ml Syringe IV 05/26/24 09:11
Q2HPRN PRN
severe pain
Insulin Aspart 0 units 05/12/24 11:30 05/13/24 12:26
Insulin Aspart Low Resistance 300 Units/3 Ml Pen.Injctr SC 06/09/24 11:29 Not Given
AC IDALIA
Protocol
Magnesium Oxide 500 mg 05/13/24 12:00 05/13/24 12:33
Magnesium Oxide 500 Mg Tablet PO 06/10/24 11:59 500 mg
NOON IDALIA Administration
Metformin HCl 500 mg 05/13/24 08:00 05/13/24 07:57
Metformin 500 Mg Regular Release Tablet PO 06/10/24 07:59 500 mg
BID@0800,1700 IDALIA Administration
Metoprolol Tartrate 25 mg 05/13/24 12:00 05/13/24 12:33
Metoprolol 25 Mg Regular Release Tablet PO 06/10/24 11:59 25 mg
NOON IDALIA Administration
Niacinamide 500 Mg 0 mg 05/13/24 08:00
Tablet Po Daily PO 06/10/24 07:59
DAILY IDALIA
Oxycodone HCl 5 mg 05/12/24 09:12 05/13/24 16:27
Oxycodone 5 Mg Regular Release Tablet PO 05/26/24 09:11 5 mg
Q4HPRN PRN Administration
moderate pain
Pantoprazole Sodium 40 mg 05/13/24 08:00 05/13/24 07:56
Pantoprazole 40 Mg Delayed Release Tablet PO 06/10/24 07:59 40 mg
DAILY IDALIA Administration
Polyethylene Glycol 17 grams 05/12/24 13:02
Polyethylene Glycol Powder 17 Grams Packet PO 06/09/24 13:01
PRN PRN
constipation
Ropinirole HCl 3 mg 05/12/24 22:00 05/12/24 22:08
Ropinirole 1 Mg Tablet PO 06/09/24 21:59 3 mg
HS IDALIA Administration
Sennosides 8.6 mg 05/13/24 08:00
Sennosides (Senokot) 8.6 Mg Tablet PO 06/10/24 07:59
DAILY PRN
CONSTIPATION
Sodium Chloride 0 flush 05/12/24 10:00
Sodium Chloride 0.9% (Flush) Syringe IV 06/09/24 09:59
PER PROTOCOL IDALIA
Tamsulosin HCl 0.4 mg 05/13/24 12:00 05/13/24 12:33
Tamsulosin 0.4 Mg Capsule PO 06/10/24 11:59 0.4 mg
NOON IDALIA Administration
Home Medications
�Medication �Instructions �Recorded
allopurinol 300 mg tablet 300 mg PO NOON Gout 10/07/16
fluoxetine 40 mg capsule (Prozac) 40 mg PO NOON Mental Health/Anxiety 10/07/16
atorvastatin 10 mg tablet 10 mg PO NOON High Cholesterol 09/25/18
finasteride 5 mg tablet 5 mg PO QPM Urinary Issue 09/25/18
metoprolol tartrate 25 mg tablet 25 mg PO NOON Heart 09/25/18
Disease/Condition
niacinamide 500 mg tablet 500 mg PO DAILY High Cholesterol 09/25/18
omeprazole 40 mg capsule,delayed 40 mg PO DAILY Gastrointestinal 09/25/18
release Issue
polyethylene glycol 3350 17 gram 17 grams PO PRN PRN constipation 06/27/20
oral powder packet
tamsulosin 0.4 mg capsule 0.4 mg PO NOON Urinary Issue 06/27/20
magnesium 200 mg tablet 400 mg PO NOON Electrolyte 05/04/24
Repletion
metformin 500 mg tablet 500 mg PO BID Diabetes 05/04/24
rivaroxaban 20 mg tablet (Xarelto) 20 mg PO NOON Blood Clot 05/04/24
Prevention/Tx
ropinirole 3 mg tablet 3 mg PO HS Mental Health/Anxiety 05/04/24
sennosides 8.6 mg tablet (senna) 8.6 mg PO PRN PRN CONSTIPATION 05/04/24
trazodone 50 mg tablet 1 mg HS Sleep 05/12/24
NIH Stroke Score
Subsequent NIH Scale
Date of Subsequent NIH Scale: 05/13/24
Time of Subsequent NIH Scale: 08:30
NIH Stroke Score
Level of Consciousness: 0 - Alert
LOC Questions: 0-Answers both correctly
LOC Commands: 0-Performs both correctly
Best Horizontal Gaze: 0-Normal
Visual Ravi: 0=Normal, no visual loss
Facial Palsy: 0=Normal, symmetrical
Motor - Right Arm: 1=Drift < 10 seconds
Motor - Left Arm: 0=No drift 10 seconds
Motor - Right Le-No drift 5 seconds
Motor - Left Le-No drift 5 seconds
Limb Ataxia: 1-Present in one limb
Sensation: 0-Normal
Best Language: 0-No aphasia
Dysarthria: 0-Normal
Extinction and Inattention: 0-No abnormality
Total Score:: 2
Modified [place] (mRS) Score
Modified [place] Scale (mRS): Moderate disability. Requires some help, able to walk unassisted.
Score: 3
Alteplase Contraindication
Inclusion and Exclusion criteria reviewed: Yes
Reasons for NON-Tx with Thrombolytics POSSIBLE Exclusions: Major surgery or serious trauma within proceding 14 days
IAT Contraindications: Imaging doesn't show large vessel occlusion as cause of stroke

Documented by User: Becky Knowles DO 05/13/24 16:45
Modified [place] Score (MRS)
-
Score: 3
NIH Stroke Score
NIH Stroke Score
Total Score:: 2
Modified [place] (mRS) Score
Score: 3
--- NOTE | 2024-05-13 09:07 | W.PN.VS ---
Addendum entered and electronically signed by Johny Jaeger III, MD 05/13/24 14:38:
This patient was seen and examined with VICTOR MANUEL Westbrook. I agree with the history and physical exam as well as the assessment and plan. I have the following additions:
MRI report reviewed demonstrating several small foci in the left frontal region consistent with acute infarct. Interestingly there is another subacute infarct. Perhaps this was a silent infarct preop and may indicate some instability in the plaque
which was contributing to a high-grade stenosis in the left internal carotid artery
The carotid endarterectomy and patch repair is widely patent on CT angiogram
Continue antiplatelet therapy and statin
Physical therapy/Occupational Therapy
Neurology follow-up later today
Signed:
Johny Jaeger III, MD
[facility] V[facility] Surgery
[phone] (ebuw)
Original Note:
Today's Communication / Plan
-
Seen and assessed with Dr Jaeger
Assessment/Plan
-
POD 1 LEFT carotid endarterectomy with patch angioplasty using bovine pericardium
Plan:
-CT negative
-MRI today
-DC carley
-DC IVF
-OOB
-PT/OT
-No more then ONE dose of Ropinirole at night please
Subjective Data
-
Date of Service: May 13, 2024
Pt seen this am with Dr Jaeger at bedside. Nurse relays pt had transient slurred speech overnight, at baseline right now. Pt did have two doses of Ropinirole last evening which may have contributed to the symptom change
Objective Data
-
Vital Signs
Temp Pulse Resp BP Pulse Ox
99.0 F 56 14 126/68 93
05/13/24 03:43 05/13/24 07:30 05/13/24 07:30 05/12/24 20:21 05/13/24 07:30
Intake and Output
05/12/24 05/13/24 05/14/24
06:59 06:59 06:59
Intake Total 2287.5 / 2387.5 100 / 100
Output Total 2149
Balance 137.5 / 237.5 100 / 100
Intake:
Oral fluids 890 / 910 20 / 20
IV fluids (Total) 1397.5 / 1477.5 80 / 80
CARDENE 100MG/200ML 77.5 / 77.5
NSS 200 / 200
Nss 1,000 ml @ 80 mls/hr IV . 1120 / 1200 80 / 80
[id number] IDALIA Rx#:[id number]
Output:
Urine, Voided 2149
Other:
How many times incontinent 1
SATURATED amount urine
Lab Results
05/13/24 03:24
05/13/24 03:24
Calcium 8.4 mg/dl (8.4-10.2) 05/13/24 03:24
Physical Exam
-
AAOx3
No tachypnea
No tachycardia
Abd soft
Neck site c/d/i, no drainage or swelling noted, soft
Right hand remains weak, moves arm well. Speech clear, no difficulty
--- NOTE | 2024-05-13 09:27 | PTCARENOTE ---
Concepcion discontinued, IVF discontinued, as per MD order. cont with neuro checks Q1H
--- NOTE | 2024-05-13 11:15 | CM ---
CM following re: discharge planning.
Discussed in Rounds reviewed pt's chart, met with pt and pt's spouse Chelsea at bedside.
Pt is a 74 year old male, admitted with primary dx of POD#1 s/p Left CEA. Pt reports he has numbness on Right hand. MRI today.
Pt reports he lives with spouse in a condo 3d floor with elevator, no steps, has a daughter and she lives out of state. 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 No DME, VN or SNF history.
IMM reviewed, placed on chart, pt has a copy.
PCP: Danyelle Churchill
Pharmacy: [facility].
D/C plan: home with anticipated no needs. Spouse to transport at discharge.
CM will follow with discharge plan updates as hospitalization progresses
--- NOTE | 2024-05-13 11:20 | W.PN.INTV ---
Today's Communication / Plan
Recommendations
Awaiting MRI results to better determine if right wrist and hand weakness is neurological in nature. Will continue to follow.
Assessment
-
Assessment: Patient is a 74-year-old male who is seen for a elective left carotid endarterectomy with patch angioplasty using bovine pericardium for asymptomatic left carotid stenosis. He has a past medical history of paroxysmal atrial
fibrillation, BPH, basal cell carcinoma, gout, insomnia, nasal fracture, colon polyps, diverticulosis, depression, and migraines. Patient has undergone cholecystectomy, tonsillectomy, nasal cauterization, and right hip replacement. Following
completion of the procedure the patient awoke from anesthesia with no immediate neurological deficits and was taken to the PACU in stable condition. In the recovery room the patient was able to move his upper extremities at the shoulder and elbow
but was unable to move his wrist and fingers on the right side. There was normal motor function in the left hand and gross motor function in the legs is intact and symmetric. No facial asymmetry seen. Patient transferred to the ICU for further
monitoring.
Chronic Medical Conditions: Paroxysmal atrial fibrillation, essential hypertension, BPH, basal cell carcinoma, gout, insomnia, nasal fracture, colon polyps, diverticulosis, depression, migraines,
Impression:
#Right wrist and hand weakness
#Left Carotid Stenosis
S/P Left Carotid Endarterectomy on 05/02/24
#Paroxysmal atrial fibrillation
#Diverticulosis
#Essential hypertension
Plan:
-Patient continues to have no additional complaints other than the ongoing left wrist and hand weakness. Physical exam does not show any pertinent findings and sensation on the hand and wrist is preserved.
-Imaging of the brain postoperatively reviewed, no acute abnormality.
-Patient is hemodynamically stable. Continue with hemodynamic monitoring.
-Incision is intact without hematoma. There is no stridor on exam.
-Awaiting MRI results
-Critical care team will continue to follow
-Postoperative surgical intensive care unit monitoring
-Supplemental oxygen as needed
-Incentive spirometry
-Aspiration precautions
-Nebulizer use if needed�currently not bronchospastic
-Chest x-ray on 05/07 showed no active pulmonary process
-Neuro and vascular checks as per protocol
-Left hand and wrist weakness - CT head showed no acute pathology - MRI ordered
-Neurology consulted
-Vascular surgery following- correspondence and operative notes reviewed
-Monitor blood pressure
-Allow for mild permissive hypertension
-Cardene drip if needed
-Follow hemoglobin - currently 13.2 on 05/13
-Patient hemodynamically stable
-Follow blood glucose - currently 139 on 05/13
-Low resistance Insulin sliding scale initiated
-DOACs being held until cleared by vascular surgery
-1800 calorie diabetic diet
-Early mobilization as tolerated
Data:
CXR on 05/07/2024: No active pulmonary process. No focal airspace disease. No pleural effusions or pneumothorax.
CT head and neck angio without IV contrast on 05/12/2024: No acute pathology identified. No evidence of M1 nor M2 occlusion. No carotid dissection. Postsurgical change of the left neck. Multilevel degenerative disc disease of the cervical spine.
Subjective Dataa
Subjective Data
Date of Service:
Date of Service: May 13, 2024
Patient calm and cooperative in discussion. Laying comfortably in hospital bed. Continues to feel right hand and wrist weakness and is unable to squeeze and make a fist. Patient asked nurse to help him eat his breakfast meal due to difficulty
with him manipulating and holding eating utensils.
Review of Systems
General: Satisfactory Appetite
Objective Data
Data Reviewed
Vital Signs / I&O / Oxygen:
Vital Signs
Temp Pulse Resp BP Pulse Ox
98.8 F 57 14 128/60 94
05/13/24 07:00 05/13/24 09:45 05/13/24 09:45 05/13/24 09:38 05/13/24 09:45
Intake and Output
05/12/24 05/13/24 05/14/24
06:59 06:59 06:59
Intake Total 2287.5 / 2387.5 140 / 140
Output Total 2150 / 2150 150 / 150
Balance 137.5 / 237.5 -10 / -10
SaO2 94
Nasal Cannula flow liters per 1
minute
Physical Exam
General: Comfortable
HEENT: Normocephalic and Anicteric
Cardiovascular: Regular Rhythm
Respiratory: Clear and Non-Labored Respirations
GI: Soft, Non Distended, Non Tender and Normal Bowel Sounds
Neurology: Awake, Alert and Oriented
Labs/Micro/Reports
Lab Data
05/13/24 03:24
05/13/24 03:24
Laboratory Results
05/13/24
03:24
PT 13.9
INR 1.09
APTT 30.3
[2024-05-13] MEDS: LOPRESSOR 25 MG PO (12:33)
[2024-05-13] MEDS: MAGNESIUM OXIDE 500 MG PO (12:33)
[2024-05-13] MEDS: LIPITOR 10 MG PO (12:33)
[2024-05-13] MEDS: ZYLOPRIM 300 MG PO (12:33)
[2024-05-13] MEDS: PROZAC 40 MG PO (12:33)
[2024-05-13] MEDS: FLOMAX 0.4 MG PO (12:33)
[2024-05-13 12:36] LABS: Glucose - Point of Care 100 mg/dl (70-99)
--- NOTE | 2024-05-13 16:14 | W.PN.UPDATE ---
Update Note
Progress Note Update
MRI of the brain noted. Acute and subacute CVA. Frontal lobe.
No new neurological deficit. Main complaint is right hand weakness.
Continue physical therapy/Occupational Therapy. May benefit from rehab.
Continue antiplatelets
Statins
Blood pressure control
Will transition to telemetry phase. Critical care team will sign off.
Please call with questions.
--- NOTE | 2024-05-13 16:17 | PTCARENOTE ---
oob to a chair for lunch and dinner with min assist, cont neuro checks and NIHSS. PT/OT seen. affected extremity elevated. intermittent ice to left neck. at bedside. MRI confirmed acute infarct. transfer orders noted.
[2024-05-13 17:42] LABS: Glucose - Point of Care 115 mg/dl (70-99)
[2024-05-13] MEDS: PROSCAR 5 MG PO (18:01)
[2024-05-13] MEDS: REQUIP 3 MG PO (20:54)
[2024-05-13 21:50] LABS: Glucose - Point of Care 110 mg/dl (70-99)
[2024-05-14] VITALS (8 sets, daily range): BP systolic 133–148; BP diastolic 67–80; PULSE 60
--- NOTE | 2024-05-14 00:36 | PTCARENOTE ---
Patient received from ICU via wheelchair. He ambulated to bed with A x 1. He was oriented to room and surroundings. HRR. Tel NSR/SB. Left neck incision approximated, CONRAD with surgical glue. Ecchymotic skin around incision. Breath sounds are
CTA SAt 97% on room air. Right arm with =1 edema. INT removed by DRY CANS OPERATOR. Right radial pulse good. 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 NIH 1 VSS
[2024-05-14] MEDS: TYLENOL 650 MG PO ×3 (03:35→20:29)
[2024-05-14] MEDS: APRESOLINE 5 MG IV (03:46)
[2024-05-14] MEDS: FLUSH (NSS) 2 FLUSH IV (03:49)
--- NOTE | 2024-05-14 05:34 | PTCARENOTE ---
Bp on routine 3am VS 168/81 HR 62. Patient c/o mild headache. Tylenol 650mg as per prn order. TT to FOOD SAMPLER, covering house, for BP management. Hydralazing 5mg per order. Repeat BP after 1 hr 146/76 HR 62 with relief of headache.
[2024-05-14] MEDS: PROTONIX 40 MG PO (07:41)
[2024-05-14] MEDS: HEPARIN 5000 UNITS SC ×2 (07:42→20:14)
[2024-05-14] MEDS: ASPIR LOW (ENTERIC COATED) 81 MG PO (07:42)
[2024-05-14] MEDS: GLUCOPHAGE 500 MG PO ×2 (07:42→17:09)
[2024-05-14 07:53] LABS: Glucose - Point of Care 101 mg/dl (70-99)
[2024-05-14] MEDS: NOVOLOG FLEXPEN-LOW RESISTANCE SC ×3 (07:59→17:24)
--- NOTE | 2024-05-14 08:08 | W.PN.VS ---
Addendum entered and electronically signed by Yinka Silva MD 05/14/24 12:27:
Seen and examined with RIDGE Stokes. Agree with findings as noted below. Left neck incision clean dry and intact. Neurologically generally stable. Right hand slight flicker of movement noted today, improvement. Otherwise overall stable. Plan/as
discussed and noted below.
Original Note:
Today's Communication / Plan
-
Patient seen and examined at bedside with Dr. Yinka Silva, below plan reviewed with attending.
Assessment/Plan
-
POD# 2 LEFT carotid endarterectomy with patch angioplasty using bovine pericardium
Plan:
-Physiatry consult pending
-OOB
-PT/OT
-Case management following for disposition planning
Subjective Data
-
Date of Service: May 14, 2024
Patient seen and examined at bedside, reports scant improvement in right hand weakness can now move thumb digit. Reports tolerating p.o. diet and has no difficulty with ambulation.
Objective Data
-
Vital Signs
Temp Pulse Resp BP Pulse Ox
98.2 F 62 18 146/76 100
05/14/24 03:20 05/14/24 04:49 05/14/24 03:20 05/14/24 04:49 05/14/24 03:20
Intake and Output
05/13/24 05/14/24 05/15/24
06:59 06:59 06:59
Intake Total 2287.5 / 2387.5 660 / 660
Output Total 2150 / 2150 550 / 550
Balance 137.5 / 237.5 110 / 110
Intake:
Oral fluids 890 / 910 580 / 580
IV fluids (Total) 1397.5 / 1477.5 80 / 80
CARDENE 100MG/200ML 77.5 / 77.5
NSS 200 / 200
Nss 1,000 ml @ 80 mls/hr IV . 1120 / 1200 80 / 80
[id number] [facility] Rx#:[id number]
Output:
Urine, Voided 2150 / 2150 550 / 550
Other:
How many times incontinent 1
MODERATE amount urine
How many times incontinent 1
SATURATED amount urine
Lab Results
05/13/24 03:24
05/13/24 03:24
Calcium 8.4 mg/dl (8.4-10.2) 05/13/24 03:24
Physical Exam
-
AAOx3
No tachypnea
No tachycardia
Abd soft
Neck site c/d/i, no drainage or swelling noted, soft
Right hand remains weak, moves arm well. Speech clear, no difficulty
--- NOTE | 2024-05-14 09:44 | CON.MD ---
Documented by User: Patricia Reich MD, Resident 05/14/24 16:04
Consultation - Medical
-
Referring Provider: Johny Jaeger III
Chief Complaint: Right Sided Hemiparesis
History of Present Illness:
The patient is a 74 year old right handed male who had left carotid endarterectomy for asymptomatic high-grade left internal carotid stenosis and it was uncomplicated. The patient noted RUE weakness upon awakening postoperatively. He denies having
any focal weakness before the surgery. He had Head MRI which showed ' Several small foci of acute to subacute infarction in the anterolateral left frontal lobe. Larger focal region of patchy foci of acute to subacute infarct involving the posterior
left frontal lobe, with cortical involvement as well as involvement of the centrum semiovale and coronal radiata. Additionally the patient reported having some transient slurred speech on 05/12 at night and denies speech difficulty now. Also he
noted left-sided headache yesterday and it resolved after PRN oxycodone. He denies any dizziness, vision changes, swallowing difficulty, nausea, chest pain, palpitations, and shortness of breath.
Past Medical History: Other (Gout, insomnia, nasal fracture, basal cell carcinoma, colon polyps, low vitamin D, depression, migraines, BPH, paroxysmal atrial fibrillation)
Procedure History: Positive for (Cholecystectomy, tonsillectomy, colonoscopy, nasal cauterization, right TKA, right L4-L5 interlaminar epidural, right hip replacement)
Family History: Positive for (Paternal hyperlipidemia and abdominal aortic aneurysm, maternal lung cancer)
Social History:
Functional Level Premorbidly: Independent with all activities
Functional Level Currently: Bed Mobility: -Supine to sit- Minimal assistance, -Sit to supine- Minimal assistance, Transfer -Sit to stand- Minimal assistance
-Stand to sit- Minimal assistance, Ambulation Patient: ambulated 40 ft x 2 with Min Ax 2 for safety
Tobacco: Denies
Alcohol: Denies
Drug use: Denies
Lives with:
24-hour assistance available: No
Number of floors:
# steps to enter: 1 st floor
Potential First floor set up:available
Driving: yes
Occupation: retired
Allergies
Allergy/AdvReac Type Severity Reaction Status Date / Time
Sulfa (Sulfonamide Allergy Unknown - Verified 05/04/24 16:16
Antibiotics) a long
time ago
Home Medications
allopurinol 300 mg tablet 300 mg PO NOON Gout 10/07/16
fluoxetine 40 mg capsule (Prozac) 40 mg PO NOON Mental Health/Anxiety 10/07/16
atorvastatin 10 mg tablet 10 mg PO NOON High Cholesterol 09/25/18
finasteride 5 mg tablet 5 mg PO QPM Urinary Issue 09/25/18
metoprolol tartrate 25 mg tablet 25 mg PO NOON Heart Disease/Condition 09/25/18
niacinamide 500 mg tablet 500 mg PO DAILY High Cholesterol 09/25/18
omeprazole 40 mg capsule,delayed release 40 mg PO DAILY Gastrointestinal Issue 09/25/18
polyethylene glycol 3350 17 gram oral powder packet 17 grams PO PRN PRN constipation 06/27/20
tamsulosin 0.4 mg capsule 0.4 mg PO NOON Urinary Issue 06/27/20
magnesium 200 mg tablet 400 mg PO NOON Electrolyte Repletion 05/04/24
metformin 500 mg tablet 500 mg PO BID Diabetes 05/04/24
rivaroxaban 20 mg tablet (Xarelto) 20 mg PO NOON Blood Clot Prevention/Tx 05/04/24
ropinirole 3 mg tablet 3 mg PO HS Mental Health/Anxiety 05/04/24
sennosides 8.6 mg tablet (senna) 8.6 mg PO PRN PRN CONSTIPATION 05/04/24
trazodone 50 mg tablet 1 mg HS Sleep 05/12/24
Review of Systems:
Constitutional: (x) Normal _
Eye: (x) Normal _
Ear/Nose/Throat:Left side neck area has surgery has incision
Respiratory: (x) Normal _
Cardiovascular: (x) Normal _
Gastrointestinal: (x) Normal _
Genitourinary: (x) Normal _
Musculoskeletal: Weakness on the RUE and minimal weakness on RLE
Integumentary: (x) Normal _
Neurologic: (x) Normal _
Psychiatric: (x) Normal _
Endocrine: (x) Normal _
Hematologic/Lymphatic: (x) Normal _
Allergic/Immunologic: (x) Normal _
Vitals:
Vital Signs
Temp Pulse Resp BP Pulse Ox
98.9 F 62 16 140/73 97
05/14/24 07:35 05/14/24 07:35 05/14/24 07:35 05/14/24 07:35 05/14/24 07:35
Physical Exam:
General Appearance/Observation: Well-developed, well-nourished individual in no apparent distress.
Pain/Comfort Assessment: Denies
Mood/Affect: Appropriate
Integumentary/Operative Site: Left neck incision due having endarterectomy
Pressure Ulcer Evaluation: absent over heels.
Eyes: Conjunctiva/Lids: normal Pupils: pupils equal round and reactive to light and Accommodation
Ears/Nose/Throat: oral mucosa moist, throat clear. Lips/Teeth/Gums: normal
Neck: No muscle spasm or tenderness
Cardiovascular: Heart: regular, no murmur
Pulses: dorsalis pedis 2+ bilaterally
Respiratory: Respiratory Effort/Chest Expansion: normal Auscultation: Clear to auscultation bilaterally
Gastrointestinal: abdomen not tender
Genitourinary: No Jaeger
Rectal Exam: Deferred
Extremities: Edema: None Cyanosis: None Trophic changes: None
Neurology Exam:
Orientation: Alert, Oriented to self, Time, Place
Memory: Intact immediately and at 3 minutes
Higher cortical function: Able to count from 21 back to 0 by 3
Comprehension: Intact
Two step command: Intact
Naming: Intact
Cranial Nerves:
CNII: Pupillary light reflex: Intact Visual Field: Intact
CN III, IV, : Extraocular muscles: Intact
CN V: Facial Sensation at Forehead: Intact, Maxilla: Intact, Mandible: Intact
CN VII: Facial movement: Symmetric
CN VIII: Hearing: Normal to conservation
CN IX/X: Speech & swallow: Normal, Position of Uvula: Midline
CN XI: Shoulder shrug: Symmetric
CN XII: Tongue protrusion: Midline
Sensory:
Light touch: Intact in bilateral upper and lower extremities. Denies difference feeling of sensation on the RUE/RLE
Reflexes:
Biceps: 2+ bilaterally
Brachioradialis: 2+ bilaterally
Triceps: 2+ bilaterally
Patellar: 2+ bilaterally
Clonus: None
Tarsha: Negative bilaterally
Cerebellar: Dysmetria/Ataxia: Right side dysmetria due weakness?
Musculoskeletal:
Motor: (Manual muscle scale 0-5)
Muscle SA EF WE EE FF FA HF KE DF EHL PF
Right 5 3 3 3 3 2 4(+) 4(+) 4(+) 4(+) 5
Left 5 5 5 5 5 5 5 5 5 5 5
Tone: Normal in all extremities
Range of Motion: Passively within normal limits in all extremities
Lab Results
Diagnostic Results: as per HPI
-MRI brain 05/13/24: Several small foci of acute to subacute infarction in the anterolateral left frontal lobe. Larger focal region of patchy foci of acute to subacute infarct involving the posterior left frontal lobe, with cortical involvement as
well as involvement of the centrum semiovale and coronal radiata.
-CTA Head/Neck 05/12/24: No acute pathology identified. No evidence of M1 nor M2 occlusion. No carotid dissection. Postsurgical change of the left neck. Multilevel degenerative disc disease of the cervical spine.
-CTA head/neck 03/06/24: Approximately 80% stenosis of the proximal left internal carotid artery. No flow-limiting stenosis of the right internal carotid artery. Intracranial vessels show no major branch vessel occlusion, flow-limiting stenosis,
aneurysm formation, or dissection. No acute intracranial abnormality.
Assessment
74 year old right handed man who developed RUE weakness upon awakening after he had left carotid endarterectomy on 05/12/28. The patient also reported having transient slurred speech on that night but he denied currently having speech/swallowing
difficulty. The patient reports improving with his hand strength and movements comparing to the 2 days ago and willing to continue rehab.
Plan
-Left frontal Subacute infarction: RUE weakness and minimal RLE weakness. Etiology likely related to unstable L ICA plaque, less likely holding OAC.
-Paroxysmal Afib: Xarelto on hold. Resume home Xarelto when cleared postoperatively by Vascular Surgery. Until able to resume Xarelto, continue aspirin 81mg daily.
-Goal normotension: Avoid hypotension.
-Hyperlipidemia: LDL goal <70. LDL is 58. atorvastatin 40mg daily.
-PT/OT: Continue
-DVT prophylaxis: Continue heparin
-Follow-up: with Neurology as an outpatient in 4-6 weeks, may see the BILL HIKER or one of the physicians.
-GI Prophylaxis: Pantoprazole
-Pulmonary: Incentive spirometry
Discharge disposition: The patient would benefit from a short acute rehabilitation stay to help with independence with ADLs, improve balance, coordination, endurance, strength, mobility, community reintegration, decreased burden of care on others
and family education. He requires min assist ambulating 80 feet and has other-comorbidities. The patient was independent and active before his hospitalization. Patient is willing to participate in acute rehab in order to improve his functional
status prior to outpatient therapy.

Documented by User: Jhoan Edouard MD 05/14/24 23:56
Consultation - Medical
-
Referring Provider: Johny Jaeger III
Chief Complaint: Right Sided Hemiparesis
History of Present Illness:
The patient is a 74 year old right handed male who had left carotid endarterectomy for asymptomatic high-grade left internal carotid stenosis and it was uncomplicated. The patient noted RUE weakness upon awakening postoperatively. He denies having
any focal weakness before the surgery. He had Head MRI which showed ' Several small foci of acute to subacute infarction in the anterolateral left frontal lobe. Larger focal region of patchy foci of acute to subacute infarct involving the posterior
left frontal lobe, with cortical involvement as well as involvement of the centrum semiovale and coronal radiata. Additionally the patient reported having some transient slurred speech on 05/12 at night and denies speech difficulty now. Also he
noted left-sided headache yesterday and it resolved after PRN oxycodone. He denies any dizziness, vision changes, swallowing difficulty, nausea, chest pain, palpitations, and shortness of breath.
Past Medical History: Other (Gout, insomnia, nasal fracture, basal cell carcinoma, colon polyps, low vitamin D, depression, migraines, BPH, paroxysmal atrial fibrillation)
Procedure History: Positive for (Cholecystectomy, tonsillectomy, colonoscopy, nasal cauterization, right TKA, right L4-L5 interlaminar epidural, right hip replacement)
Family History: Positive for (Paternal hyperlipidemia and abdominal aortic aneurysm, maternal lung cancer)
Social History:
Functional Level Premorbidly: Independent with all activities
Functional Level Currently: Bed Mobility: -Supine to sit- Minimal assistance, -Sit to supine- Minimal assistance, Transfer -Sit to stand- Minimal assistance
-Stand to sit- Minimal assistance, Ambulation Patient: ambulated 40 ft x 2 with Min Ax 2 for safety
Tobacco: Denies
Alcohol: Denies
Drug use: Denies
Lives with:
24-hour assistance available: No
Number of floors:
# steps to enter: 1 st floor
Potential First floor set up:available
Driving: yes
Occupation: retired
Allergies
Allergy/AdvReac Type Severity Reaction Status Date / Time
Sulfa (Sulfonamide Allergy Unknown - Verified 05/04/24 16:16
Antibiotics) a long
time ago
Home Medications
allopurinol 300 mg tablet 300 mg PO NOON Gout 10/07/16
fluoxetine 40 mg capsule (Prozac) 40 mg PO NOON Mental Health/Anxiety 10/07/16
atorvastatin 10 mg tablet 10 mg PO NOON High Cholesterol 09/25/18
finasteride 5 mg tablet 5 mg PO QPM Urinary Issue 09/25/18
metoprolol tartrate 25 mg tablet 25 mg PO NOON Heart Disease/Condition 09/25/18
niacinamide 500 mg tablet 500 mg PO DAILY High Cholesterol 09/25/18
omeprazole 40 mg capsule,delayed release 40 mg PO DAILY Gastrointestinal Issue 09/25/18
polyethylene glycol 3350 17 gram oral powder packet 17 grams PO PRN PRN constipation 06/27/20
tamsulosin 0.4 mg capsule 0.4 mg PO NOON Urinary Issue 06/27/20
magnesium 200 mg tablet 400 mg PO NOON Electrolyte Repletion 05/04/24
metformin 500 mg tablet 500 mg PO BID Diabetes 05/04/24
rivaroxaban 20 mg tablet (Xarelto) 20 mg PO NOON Blood Clot Prevention/Tx 05/04/24
ropinirole 3 mg tablet 3 mg PO HS Mental Health/Anxiety 05/04/24
sennosides 8.6 mg tablet (senna) 8.6 mg PO PRN PRN CONSTIPATION 05/04/24
trazodone 50 mg tablet 1 mg HS Sleep 05/12/24
Review of Systems:
Constitutional: (x) Normal _
Eye: (x) Normal _
Ear/Nose/Throat:Left side neck area has surgery has incision
Respiratory: (x) Normal _
Cardiovascular: (x) Normal _
Gastrointestinal: (x) Normal _
Genitourinary: (x) Normal _
Musculoskeletal: Weakness on the RUE and minimal weakness on RLE
Integumentary: (x) Normal _
Neurologic: (x) Normal _
Psychiatric: (x) Normal _
Endocrine: (x) Normal _
Hematologic/Lymphatic: (x) Normal _
Allergic/Immunologic: (x) Normal _
Vitals:
Vital Signs
Temp Pulse Resp BP Pulse Ox
98.9 F 62 16 140/73 97
05/14/24 07:35 05/14/24 07:35 05/14/24 07:35 05/14/24 07:35 05/14/24 07:35
Physical Exam:
General Appearance/Observation: Well-developed, well-nourished male in no apparent distress.
Pain/Comfort Assessment: Denies
Mood/Affect: Appropriate
Integumentary/Operative Site: Left neck incision with glue C/D/I
Pressure Ulcer Evaluation: absent over heels.
Eyes: Conjunctiva/Lids: normal Pupils: pupils equal round and reactive to light and Accommodation
Ears/Nose/Throat: oral mucosa moist, throat clear. Lips/Teeth/Gums: normal
Neck: No muscle spasm or tenderness
Cardiovascular: Heart: regular, no murmur
Pulses: dorsalis pedis 2+ bilaterally
Respiratory: Respiratory Effort/Chest Expansion: normal Auscultation: Clear to auscultation bilaterally
Gastrointestinal: abdomen not tender
Genitourinary: No Jaeger
Extremities: Edema: None Cyanosis: None Trophic changes: None
Neurology Exam:
Orientation: Alert, Oriented to self, Time, Place
Memory: Intact immediately and at 3 minutes
Higher cortical function: Able to count from 21 back to 0 by 3
Comprehension: Intact
Two step command: Intact
Naming: Intact
Cranial Nerves:
CNII: Pupillary light reflex: Intact Visual Field: Intact
CN III, IV, : Extraocular muscles: Intact
CN V: Facial Sensation at Forehead: Intact, Maxilla: Intact, Mandible: Intact
CN VII: Facial movement: right facial wekaness
CN VIII: Hearing: Normal to conservation
CN IX/X: Speech & swallow: Normal, Position of Uvula: Midline
CN XI: Shoulder shrug: Symmetric
CN XII: Tongue protrusion: Midline
Sensory:
Light touch: Intact in bilateral upper and lower extremities. Denies difference feeling of sensation on the RUE/RLE
Reflexes:
Biceps: 2+ bilaterally
Brachioradialis: 2+ bilaterally
Triceps: 2+ bilaterally
Patellar: 2+ bilaterally
Clonus: None
Tarsha: Negative bilaterally
Cerebellar: Dysmetria/Ataxia: No dysmetria
Musculoskeletal:
Motor: (Manual muscle scale 0-5)
Muscle SA EF WE EE FF FA HF KE DF EHL PF
Right 4 3+ 3+ 3 3 2 4(+) 4(+) 4(+) 4(+) 5
Left 5 5 5 5 5 5 5 5 5 5 5
Tone: Normal in all extremities
Range of Motion: Passively within normal limits in all extremities
Lab Results
Laboratory Data
05/13/24 03:24
05/13/24 03:24
PT 13.9 Sec (11.4-14.6) 05/13/24 03:24
INR 1.09 05/13/24 03:24
APTT 30.3 Sec (23.4-35.0) 05/13/24 03:24
Diagnostic Results: as per HPI
-MRI brain 05/13/24: Several small foci of acute to subacute infarction in the anterolateral left frontal lobe. Larger focal region of patchy foci of acute to subacute infarct involving the posterior left frontal lobe, with cortical involvement as
well as involvement of the centrum semiovale and coronal radiata.
-CTA Head/Neck 05/12/24: No acute pathology identified. No evidence of M1 nor M2 occlusion. No carotid dissection. Postsurgical change of the left neck. Multilevel degenerative disc disease of the cervical spine.
-CTA head/neck 03/06/24: Approximately 80% stenosis of the proximal left internal carotid artery. No flow-limiting stenosis of the right internal carotid artery. Intracranial vessels show no major branch vessel occlusion, flow-limiting stenosis,
aneurysm formation, or dissection. No acute intracranial abnormality.
Assessment
74 year old right handed man who developed RUE weakness upon awakening after he had left carotid endarterectomy on 05/12/28. The patient also reported having transient slurred speech on that night but he denied currently having speech/swallowing
difficulty. The patient reports improving with his hand strength and movements comparing to the 2 days ago and willing to continue rehab.
Plan
PM&R: Acute inpatient rehab with PT/OT/SW/RN/psychology to increase independence with ADLs, improve balance, coordination, endurance, strength, mobility, community reintegration, decreased burden of care on others and family education.
Left frontal Subacute infarction: RUE weakness and minimal RLE weakness. Etiology likely related to unstable L ICA plaque, less likely holding OAC.
-Goal normotension: Avoid hypotension.
Right dominant hemiparesis: High risk for falls and sliding out of chair/bed. Safety reinforced.
- Avoid using affected arm to help lift or pull patient as this will cause trauma to the shoulder.
Right inattention: makes patient at increased risk for falls.� Will need therapy to work on scanning of environment for safe navigation.
Leukocytosis: unclear etiology. No fever, monitor.
Paroxysmal Afib: Xarelto on hold. Resume home Xarelto when cleared postoperatively by Vascular Surgery. Until able to resume Xarelto, continue aspirin 81mg daily.
Goal normotension: Avoid hypotension.
Hyperlipidemia: LDL goal <70. LDL is 58. atorvastatin 40mg daily.
FEN: Diabetic diet, encourage hydration with elevated BUN
Psych: Psychology consult.� Monitor mood, adjust medications as needed.
Skin: monitor for pressure sores/rashes/lesions.
Pain: acetaminophen
DVT prophylaxis: mechanical, heparin
Follow-up: with Neurology as an outpatient in 4-6 weeks, may see the BILL HIKER or one of the physicians.
GI Prophylaxis: Pantoprazole
Pulmonary: Incentive spirometry
Code Status:� Full code
Dispo (date/plan/equipment needs): Home with family care.
Discharge disposition: The patient would benefit from a short acute rehabilitation stay to help with independence with ADLs, improve balance, coordination, endurance, strength, mobility, community reintegration, decreased burden of care on others
and family education. He requires min assist ambulating 80 feet and has other-comorbidities. The patient was independent and active before his hospitalization. Patient is willing to participate in acute rehab in order to improve his functional
status prior to outpatient therapy.
Attending Statement:
I saw and examined the patient today.� Reviewed care plan with patient, , therapy, and Resident Patricia .� I agree with the above subjective and physical exam, and plan as documented with adjustments made as necessary. Patient making gains today
in right hand use although still limited. With right hemiparesis will do best with acute rehab program. Patient willing to participate.
[2024-05-14] MEDS: PROZAC 40 MG PO (12:04)
[2024-05-14] MEDS: LOPRESSOR 25 MG PO (12:05)
[2024-05-14] MEDS: ZYLOPRIM 300 MG PO (12:05)
[2024-05-14] MEDS: FLOMAX 0.4 MG PO (12:05)
[2024-05-14] MEDS: LIPITOR 40 MG PO (12:05)
[2024-05-14] MEDS: MAGNESIUM OXIDE 500 MG PO (12:05)
[2024-05-14 12:16] LABS: Glucose - Point of Care 127 mg/dl (70-99)
--- NOTE | 2024-05-14 15:15 | CM ---
Reviewed the chart notes and spoke with the patient and spouse at the bedside. PT recommending acute rehab. Referral sent to [facility] and they accepted the patient. IMM reviewed. CM continues to be available to patient/family and is monitoring
medical plan for needs at discharge.
Plan: Discharge to [facility] hopefully tomorrow.
Call report to: [phone]
Fax report to: [phone]
[2024-05-14] MEDS: MIRALAX 17 GRAMS PO (17:08)
[2024-05-14] MEDS: PROSCAR 5 MG PO (17:09)
[2024-05-14 17:24] LABS: Glucose - Point of Care 107 mg/dl (70-99)
[2024-05-14] MEDS: REQUIP 3 MG PO (20:14)
[2024-05-14 21:38] LABS: Glucose - Point of Care 112 mg/dl (70-99)
[2024-05-15 03:00] VITALS: BP 145/75
[2024-05-15] MEDS: TYLENOL 650 MG PO (06:23)
[2024-05-15 07:35] VITALS: BP 154/81
[2024-05-15 07:35] LABS: Hematocrit 37.6 % (39.0-52.0); Hemoglobin 12.9 g/dL (13.0-18.0); Mean Corp Hgb Conc. 34.3 g/dL (33.0-37.0); Mean Corpuscular Hgb 30.7 pg (27.0-31.0); Mean Corpuscular Volume 89.5 fL (80.0-94.0); Mean Platelet Volume 9.5 fL (7.4-10.4); Platelet Count 138 10^3/uL (130-400); Red Cell Dist. Width 13.5 % (11.5-14.5); White Blood Cell Count 6.9 10^3/uL (4.8-10.8)
[2024-05-15 07:46] LABS: Blood Urea Nitrogen 25 mg/dl (9-20); Carbon Dioxide 29 mmol/L (22-30); Chloride 103 mmol/L (98-107); Estimated Creatinine Clearance 55 ml/min; Glucose 102 mg/dl (70-99); Potassium 4.3 mmol/L (3.5-5.1); Sodium 140 mmol/L (135-145); eGFR > 60.00
[2024-05-15 07:49] LABS: Glucose - Point of Care 110 mg/dl (70-99)
[2024-05-15] MEDS: NOVOLOG FLEXPEN-LOW RESISTANCE SC (07:58)
[2024-05-15] MEDS: PROTONIX 40 MG PO (07:59)
[2024-05-15] MEDS: ASPIR LOW (ENTERIC COATED) 81 MG PO (07:59)
[2024-05-15] MEDS: GLUCOPHAGE 500 MG PO (07:59)
--- NOTE | 2024-05-15 09:25 | W.PN.VS ---
Today's Communication / Plan
-
Seen and assessed with Dr. Jaeger
Assessment/Plan
-
POD# 3 LEFT carotid endarterectomy with patch angioplasty using bovine pericardium
Plan:
-Gotti today
-Xarelto restarted
Subjective Data
-
Date of Service: May 15, 2024
Patient seen and assessed at bedside exam Dr. Jaeger. Patient has regained movement in his right hand overnight! Overall doing great.
Objective Data
-
Vital Signs
Temp Pulse Resp BP Pulse Ox
98.2 F 53 16 154/81 95
05/15/24 07:35 05/15/24 07:35 05/15/24 07:35 05/15/24 07:35 05/15/24 07:35
Intake and Output
05/14/24 05/15/24 05/16/24
06:59 06:59 06:59
Intake Total 660 / 660 1760 / 1760
Output Total 550 / 550
Balance 110 / 110 1760 / 1760
Intake:
Oral fluids 580 / 580 1760 / 1760
IV fluids (Total) 80 / 80
Nss 1,000 ml @ 80 mls/hr IV . 80 / 80
[id number] [facility] Rx#:[id number]
Output:
Urine, Voided 550 / 550
Other:
Number of approximated MODERATE 3
amounts of urine
How many times incontinent 1
MODERATE amount urine
Lab Results
05/15/24 06:56
05/15/24 06:56
Calcium 9.0 mg/dl (8.4-10.2) 05/15/24 06:56
Physical Exam
-
AAOx3
No tachypnea
No tachycardia
Abd soft
Neck site c/d/i, no drainage or swelling noted, soft
Right machine feeder strength+, moves arm well. Speech clear, no difficulty
--- NOTE | 2024-05-15 09:28 | W.DS.TRANS ---
DC Summary - [employer]
-
Discharge Instructions:
Sleep Apnea Risk Intermediate
Discharge Diagnosis/Procedures LEFT carotid endarterectomy with patch
angioplasty using bovine pericardium
Diet No restrictions
Activity No strenuous activity
Driving Restrictions Not until seen by your Dr
Bathing Restrictions OK to Shower
Instructions:
Stand-Alone Forms: DC Instr - Vascular OR
Changes to Home Medications: Yes
Discharge Medications:
DC Medications w/original date entered in [facility]
allopurinol 300 mg tablet 300 mg PO NOON Gout 10/07/16
fluoxetine 40 mg capsule (Prozac) 40 mg PO NOON Mental Health/Anxiety 10/07/16
finasteride 5 mg tablet 5 mg PO QPM Urinary Issue 09/25/18
metoprolol tartrate 25 mg tablet 25 mg PO NOON Heart Disease/Condition 09/25/18
niacinamide 500 mg tablet 500 mg PO DAILY High Cholesterol 09/25/18
polyethylene glycol 3350 17 gram oral powder packet 17 grams PO PRN PRN constipation 06/27/20
tamsulosin 0.4 mg capsule 0.4 mg PO NOON Urinary Issue 06/27/20
magnesium 200 mg tablet 400 mg PO NOON Electrolyte Repletion 05/04/24
metformin 500 mg tablet 500 mg PO BID Diabetes 05/04/24
rivaroxaban 20 mg tablet (Xarelto) 20 mg PO NOON Blood Clot Prevention/Tx 05/04/24
ropinirole 3 mg tablet 3 mg PO HS Mental Health/Anxiety 05/04/24
sennosides 8.6 mg tablet (senna) 8.6 mg PO PRN PRN CONSTIPATION 05/04/24
trazodone 50 mg tablet 1 mg HS Sleep 05/12/24
aspirin 81 mg tablet,delayed release 81 mg PO DAILY #90 tabs 05/14/24
atorvastatin 40 mg tablet 40 mg PO NOON #90 tabs 05/14/24
pantoprazole 40 mg tablet,delayed release 40 mg PO DAILY #60 tabs 05/14/24
Home Medication Changes
Recommend holding trazodone at bedtime due to confusion
Started aspirin 81 mg daily
Atorvastatin increased
Protonix added
Pending Results: No
--- NOTE | 2024-05-15 10:10 | CM ---
Reviewed the chart notes. Patient to be discharged today to [facility].
Plan: Discharge to [facility] today.
Call report to: [phone]
Fax report to: [phone]
[2024-05-15 11:31] VITALS: BP 162/87
[2024-05-15] MEDS: LOPRESSOR 25 MG PO (11:58)
[2024-05-15] MEDS: PROZAC 40 MG PO (11:58)
[2024-05-15] MEDS: MAGNESIUM OXIDE 500 MG PO (11:58)
[2024-05-15] MEDS: LIPITOR 40 MG PO (11:59)
[2024-05-15] MEDS: ZYLOPRIM 300 MG PO (11:59)
[2024-05-15] MEDS: FLOMAX 0.4 MG PO (11:59)
--- NOTE | 2024-05-15 12:38 | PTCARENOTE ---
Report called to tx patient to [facility], transport called to take patient over. Pt in room with at bedside.
== END 2024-05-15 13:14 | DRG 37 ==
LOC: 2 NORTH 06:14
PROVIDERS: Nurse Practitioner; ADMITTING PHYSICIAN Surgery Vascular Surgery; CONSULT PHYSICIAN Physical Medicine & Rehabilitation; CONSULT PHYSICIAN Psychiatry & Neurology Neurology; FAMILY PHYSICIAN Family Medicine
PROC: 03UL0KZ Supplement Left Internal Carotid Artery with Nonautologous Tissue Substitute, Open Approach (ICD-10-PCS; 2024-05-12)
PROC: 03CL0ZZ Extirpation of Matter from Left Internal Carotid Artery, Open Approach (ICD-10-PCS; 2024-05-12)
DX: I65.22 Occlusion and stenosis of left carotid artery (principal); I63.89 Other cerebral infarction; I48.0 Paroxysmal atrial fibrillation; E78.5 Hyperlipidemia, unspecified; E55.9 Vitamin D deficiency, unspecified; G25.81 Restless legs syndrome; G47.00 Insomnia, unspecified; G83.21 Monoplegia of upper limb affecting right dominant side; R47.81 Slurred speech; R29.702 NIHSS score 2; M10.9 Gout, unspecified; N40.0 Benign prostatic hyperplasia without lower urinary tract symptoms; K58.9 Irritable bowel syndrome, unspecified; K21.9 Gastro-esophageal reflux disease without esophagitis; G43.909 Migraine, unspecified, not intractable, without status migrainosus; F32.A Depression, unspecified; D72.829 Elevated white blood cell count, unspecified; Z88.2 Allergy status to sulfonamides; Z85.828 Personal history of other malignant neoplasm of skin; Z79.01 Long term (current) use of anticoagulants; Z79.84 Long term (current) use of oral hypoglycemic drugs
CPT/HCPCS: 88304; 88311; 35301; 36415; 70496; 70498; 70553; 71045; 71046; 80048; 80061; 82607; 82728; 82746; 82962; 83036; 84443; 85025; 85027; 85610; 85730; 86850; 86900; 86901; 87070; 93005; 95938; 95941; 95955; 97110; 97163; 97167; 97530; A9575; Q9967

== ENCOUNTER 2024-06-15 14:20 | Outpatient (RCR) | payer MEDICARE, SELFPAY | END 2024-06-15 23:59 | disposition home or self-care (01) | LOC: RPT 14:20 | PROVIDERS: ATTENDING PHYSICIAN Physical Medicine & Rehabilitation; FAMILY PHYSICIAN Family Medicine | DX: I69.351 Hemiplegia and hemiparesis following cerebral infarction affecting right dominant side (principal); I69.323 Fluency disorder following cerebral infarction; Z73.6 Limitation of activities due to disability | CPT/HCPCS: 93880; 97110; 97112; 97163; 97167; 97530 ==

== ENCOUNTER 2024-07-08 06:35 | Outpatient (RCR) | payer MEDICARE, SELFPAY | END 2024-07-08 23:59 | disposition home or self-care (01) | LOC: RPT 06:35 | PROVIDERS: ATTENDING PHYSICIAN Physical Medicine & Rehabilitation; FAMILY PHYSICIAN Family Medicine | DX: I69.351 Hemiplegia and hemiparesis following cerebral infarction affecting right dominant side (principal); I69.328 Other speech and language deficits following cerebral infarction; Z73.6 Limitation of activities due to disability | CPT/HCPCS: 97110; 97112; 97530 ==

== ENCOUNTER → 2024-09-04 12:45 | Outpatient (REF) | payer MEDICARE, SELFPAY | LOC: HWRAD 12:45 | PROVIDERS: ATTENDING PHYSICIAN Family Medicine | DX: M25.512 Pain in left shoulder (principal) | CPT/HCPCS: 73030 ==

== ENCOUNTER 2024-09-25 02:34 | Emergency (ER) | payer MEDICARE, SELFPAY ==
[2024-09-25 02:38] VITALS: BP 165/77
[2024-09-25 03:15] LABS: % Basophils 0.2 % (0-2); % Eosinophils 1.1 % (0-6); % Immature Granulocytes 0.5 % (0-0.5); % Lymphocytes 16.8 % (20.5-51.1); % Monocytes 9.6 % (1.7-9.3); % Neutrophils 71.8 % (42.2-75.2); Absolute Eosinophils 0.1 10^3/uL (0-0.7); Absolute Lymphocytes 0.9 10^3/uL (1.2-3.4); Absolute Monocytes 0.5 10^3/uL (0.1-0.6); Hematocrit 45.3 % (39.0-52.0); Mean Corp Hgb Conc. 33.1 g/dL (33.0-37.0); Mean Corpuscular Hgb 30.4 pg (27.0-31.0); Mean Corpuscular Volume 91.9 fL (80.0-94.0); Mean Platelet Volume 8.7 fL (7.4-10.4); Nucleated Red Blood Cells % 0 % (-); Platelet Count 148 10^3/uL (130-400); Red Blood Cell Count 4.93 10^6/uL (4.70-6.10); Red Cell Dist. Width 13.2 % (11.5-14.5); White Blood Cell Count 5.6 10^3/uL (4.8-10.8)
[2024-09-25 03:19] VITALS: BMI 26.6
[2024-09-25 03:25] LABS: INR 1.17; PT 15.4 Sec (11.4-14.6)
[2024-09-25 03:26] LABS: APTT 40.1 Sec (23.4-35.0)
[2024-09-25] MEDS: TYLENOL 1000 MG PO (03:31)
[2024-09-25 03:35] LABS: ALT (SGPT) 24 U/L (0-50); AST (SGOT) 28 U/L (17-59); Albumin 4.5 g/dl (3.5-5.0); Alkaline Phosphatase 88 U/L (38-126); Blood Urea Nitrogen 35 mg/dl (9-20); Calcium 9.1 mg/dl (8.4-10.2); Carbon Dioxide 25 mmol/L (22-30); Chloride 104 mmol/L (98-107); Estimated Creatinine Clearance 48 ml/min; Glucose 118 mg/dl (70-99); Potassium 4.3 mmol/L (3.5-5.1); Sodium 139 mmol/L (135-145); Total Bilirubin 0.5 mg/dl (0.2-1.3); eGFR 56.93
[2024-09-25 03:38] LABS: Troponin I < 0.012 ng/ml
[2024-09-25 04:30] VITALS: BP 125/69
--- NOTE | 2024-09-25 04:33 | ED.CVA ---
History of Present Illness
General
Chief Complaint: CVA/TIA Symptoms
Source: patient and family
Exam Limitations: none
Nursing documentation reviewed up to this point in time: agreed with
Onset of Stroke Symptoms
Onset of symptoms known: Yes
Date of onset of symptoms: 09/25/24
History of Present Illness
History of Present Illness:
Pleasant 74-year-old male who presents to the emergency department after suffering left-sided neck pain. It awakened him from sleep. He also reported some teeth pain. He had a left-sided carotid endarterectomy in April of last year. He is being
followed by Dr. Johny Jaeger. He is due for an MRI and other testing in 2 months. Upon arrival, patient states that his symptoms had resolved. He had no complaints. Patient denies chest pain or shortness of breath. Reports no blurry vision,
slurred speech or headache. Accompanied by his .
Past History
Past History
ED Past Medical History: Arrthythmia, GERD, HTN, Hypercholesterolemia and Other (kidney stones)
ED Past Surgical History: Cholecystectomy and Orthopedic (Right knee replacement)
Social History
Tobacco: Non-smoker
Alcohol: Daily (Wine)
Drug: None
Personal:
Living: with family
Employment: Retired
Family History
Family History: Other
Review of Systems
Review of Systems
Allergies reviewed?: Yes
All Other Systems: ROS reviewed and negative except as documented in HPI and ROS
Constitutional: Denies fever or fatigue
EENT: Reports no symptoms
Respiratory: Reports no symptoms
Cardiac: Reports no symptoms
ABD/GI: Reports no symptoms
: Reports no symptoms
Musculoskeletal: Reports neck pain
Skin: Reports no symptoms
Neurological: Reports no symptoms
Endocrine: Reports no symptoms
Hematologic/Lymphatic: Reports no symptoms
Psychiatric: Reports no symptoms
Phy Exam
General Physical Exam
General Presentation: well appearing and no apparent distress
General Skin: warm and dry
General Habitus: normal
General Mental: alert
General Hydration: appears well hydrated
ENT Exam
ENT Exam: EOMI, pharynx normal, neck supple and normocephalic
Eye Exam
Eye Exam: PERRL, cornea clear and conjunctiva normal
Cardiovascular Exam
Cardiovascular Exam: regular rate/rhythm, no edema, no murmur and normal peripheral pulses
Pulmonary Exam
Pulmonary Exam: lungs clear, no respiratory distress, no rales, no crackles, no rhonchi, no stridor, no wheezing and no cough
Gastrointestinal Exam
Gastrointestinal Exam: normal bowel sounds, non tender, soft, no organomegaly, no pulsatile mass and non distended
Neurological Exam
Neurological Exam: alert, oriented x3, no motor deficits and speech normal
NIH Stroke Score
Level of Consciousness: 0 - Alert
LOC questions: 0-Answers both correctly
LOC Commands: 0-Performs both correctly
Best Gaze: 0-Normal
Visual Ravi: 0=Normal, no visual loss
Facial palsy: 0=Normal, symmetrical
Motor - Right Arm: 0=No drift 10 seconds
Motor - Left Arm: 0=No drift 10 seconds
Motor - Right Le-No drift 5 seconds
Motor - Left Le-No drift 5 seconds
Limb Ataxia: 0-Absent
Sensation: 0-Normal
Best Language: 0-No aphasia
Extinction and Inattention: 0-No abnormality
Cerebellar
Cerebellar Function: normal finger to nose
Musculoskeletal Exam
Musculoskeletal Exam: full ROM and no edema
Skin Exam
Skin Exam: normal color, warm/dry, no rash and no petechia
Psychiatric Exam
Psychiatric Exam: normal mood/affect
Course
Orders/Labs/Results
Orders:
Orders
09/25/24 02:45
Electrocardiogram (*1) Stat
Reason for Study: Other
Other Reason for Exam: chest pain
CT Head & Neck Angio W/wo IV Urgent
Comment: wrong order placed by attending
Reason For Exam: recent endarodectomy, now with neck pain
EKG- Treatment ONCE
09/25/24 03:03
Complete Blood Count/With Diff Urgent
Comprehensive Metabolic Panel Urgent
PTT Urgent
Prothrombin Time Urgent
Troponin I Urgent
09/25/24 03:22
Speech Screening from [facility] Routine
09/25/24 03:27
Acetaminophen [Tylenol] 1,000 mg PO NOW STA
09/25/24 03:29
Acetaminophen [Tylenol] 1,000 mg .ROUTE .STK-MED ONE
Abnormal Lab Results
09/25/24
03:03
Absolute Lymphs (auto) 0.9 L 10^3/uL
(1.2-3.4)
Lymphocytes % 16.8 L %
(20.5-51.1)
Monocytes % 9.6 H %
(1.7-9.3)
PT 15.4 H Sec
(11.4-14.6)
APTT 40.1 H Sec
(23.4-35.0)
BUN 35 H mg/dl
(9-20)
Glucose 118 H mg/dl
(70-99)
09/25/24 03:03
09/25/24 03:03
Vital Signs
Initial and Last Documented VS:
Initial Vital Signs
Temp Pulse Resp BP Pulse Ox
98.3 F 62 16 165/77 98
09/25/24 02:38 09/25/24 02:38 09/25/24 02:38 09/25/24 02:38 09/25/24 02:38
Last Documented Vital Signs
Temp Pulse Resp BP Pulse Ox
98.3 F 55 20 125/69 98
09/25/24 02:38 09/25/24 04:30 09/25/24 04:30 09/25/24 04:30 09/25/24 05:10
*Radiology
Radiology exam reviewed: radiology read reviewed
*Pulse Oximetry
Patient hypoxic: no
*Critical Care Note
Total Time (30-74mins, 75-104mins- exclusive of procedures): Not Applicable
Update Note
Update Note:
CT head without IV contrast
CTA head and neck with IV contrast
IMPRESSION:
CT HEAD: No hemorrhage, hydrocephalus, or herniation. 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
CTA HEAD AND NECK: No large vessel occlusion or high-grade stenosis. Status post left endarterectomy.
Finalized at 4:16 AM EST
ED Attending Note
-
Portions of this chart may have been created with voice recognition software.� Occasional wrong word or��sound alike� substitutions may have occurred due to the inherent limitations of voice recognition software.
Discharge Plan
Departure
Patient Disposition: Home (Routine Discharge)
Date of Disposition: 09/25/24
Time of Disposition: 04:46
Patient with high blood pressure during this ER visit?: Yes
Discharge Problem:
Acute neck pain
Instructions: Neck pain, BLOOD PRESSURE
Prescriptions:
No Action
fluoxetine [Prozac] 40 MG capsule
40 mg PO NOON
allopurinol 300 MG tablet
300 mg PO NOON
niacinamide 500 MG tablet
500 mg PO DAILY
finasteride 5 MG tablet
5 mg PO QPM
tamsulosin 0.4 MG capsule
0.4 mg PO NOON
metformin 500 mg Tablet
500 mg PO BID
ropinirole 3 mg Tablet
3 mg PO HS
magnesium 200 mg Tablet
400 mg PO NOON
Xarelto 20 MG tablet
20 mg PO NOON
Rx Instructions:
Resume after completed Xarelto 10 mg daily prescription
trazodone 50 mg Tablet
50 mg HS
atorvastatin 40 mg Tablet
40 mg PO NOON Qty: 90 0RF
omeprazole 20 mg Tablet,Delayed Release (Dr/Ec)
20 mg PO DAILY
metoprolol tartrate 25 mg tablet
25 mg PO DAILY
Nurtec ODT 75 mg Tablet,Disintegrating
75 mg PO ONCE PRN (Reason: headaches)
cholecalciferol (vitamin D3) 25 mcg (1,000 unit) Tablet
25 mcg PO DAILY 30 Days Qty: 30 0RF
Referrals:
Johny Jaeger III, MD [Active] -
Danyelle Churchill MD [Family Provider] -
Activity Restrictions/Additional Instructions:
It was a pleasure meeting you and taking part in your care. We hope for your continued healing and wellness.
Please read discharge instructions in their entirety. However, they are for general education and may not describe your exact diagnosis at discharge. Information on your ER visit and medical conditions were discussed with you along with appropriate
follow up information...
If indicated, please take your medications as instructed and indicated on discharge paperwork.
Please schedule a follow up appointment as directed. Call to schedule an appointment
Please return to the emergency department with ANY change in, persisting, or worsening of symptoms. If any of your symptoms do not improve, or persist, or become more severe within 6-12 hours, please return to the emergency department for further
care.
Please return to the emergency department if you develop a headache, neck pain/stiffness, fever greater than 100.4F, chest pain, shortness of breath, persistent nausea, vomiting, slurred speech, difficulty walking, numbness/tingling, weakness, signs
of infection or any other symptoms that are worrisome to you.
If you have any questions or concerns please do not hesitate to call the Hospital at or E-mail me directly at [email or web address]
Interventions
Interventions:
*Risk Screen - Suicide Last Done: 09/25/24 02:38
*General Assessment Last Done: 09/25/24 05:10
*Neglect/Abuse Screening Last Done: 09/25/24 02:38
ED- Fall Risk Assessment Last Done: 09/25/24 03:20
*ED COVID-19 Vaccine History Last Done: 09/25/24 02:38
*Nursing Disposition Last Done: 09/25/24 05:10
ED- Pulmonary Assessment Last Done: 09/25/24 03:20
ED- Neurological Assessment Last Done: 09/25/24 03:20
ED- Cardiac Assessment Last Done: 09/25/24 03:20
ED Swallowing Screen Last Done: 09/25/24 03:25
Discharge Date and Time
Discharge Date/Time: 09/25/24 05:11
Print Language: TURKISH
== END 2024-09-25 05:11 | disposition home or self-care (01) ==
LOC: EMR 02:34
PROVIDERS: EMERGENCY PHYSICIAN Student in an Organized Health Care Education/Training Program; FAMILY PHYSICIAN Family Medicine
DX: M54.2 Cervicalgia (principal); I10 Essential (primary) hypertension; E78.00 Pure hypercholesterolemia, unspecified; K21.9 Gastro-esophageal reflux disease without esophagitis; Z90.49 Acquired absence of other specified parts of digestive tract
CPT/HCPCS: 99284; 70496; 70498; 80053; 84484; 85025; 85610; 85730; 93005; Q9967

== ENCOUNTER → 2024-10-26 13:28 | Outpatient (REF) | payer MEDICARE, SELFPAY | LOC: PAVMRI 13:28 | PROVIDERS: ATTENDING PHYSICIAN Nurse Practitioner Adult Health; FAMILY PHYSICIAN Family Medicine | DX: R51.9 Headache, unspecified (principal) | CPT/HCPCS: 70553; A9575 ==

== ENCOUNTER 2024-11-04 14:03 | Outpatient (RCR) | payer MEDICARE, SELFPAY | END 2024-11-04 23:59 | disposition home or self-care (01) | LOC: RPT 14:03 | PROVIDERS: ATTENDING PHYSICIAN Family Medicine | DX: M79.12 Myalgia of auxiliary muscles, head and neck (principal); R29.3 Abnormal posture; R51.9 Headache, unspecified; Z73.6 Limitation of activities due to disability; Z86.73 Personal history of transient ischemic attack (TIA), and cerebral infarction without residual deficits | CPT/HCPCS: 97110; 97162 ==

== ENCOUNTER 2024-12-10 15:00 | Outpatient (RCR) | payer MEDICARE, SELFPAY | END 2024-12-10 23:59 | disposition home or self-care (01) | LOC: RPT 15:00 | PROVIDERS: ATTENDING PHYSICIAN Family Medicine | DX: M79.12 Myalgia of auxiliary muscles, head and neck (principal); R29.3 Abnormal posture; R51.9 Headache, unspecified; Z73.6 Limitation of activities due to disability; Z86.73 Personal history of transient ischemic attack (TIA), and cerebral infarction without residual deficits | CPT/HCPCS: 97010; 97110; 97112; 97140 ==

== ENCOUNTER 2024-12-16 11:08 | Outpatient (RCR) | payer MEDICARE, SELFPAY | END 2025-01-11 08:54 | disposition home or self-care (01) | LOC: RPT 11:08 | PROVIDERS: ATTENDING PHYSICIAN Family Medicine | DX: M79.12 Myalgia of auxiliary muscles, head and neck (principal); R29.3 Abnormal posture; R51.9 Headache, unspecified; Z73.6 Limitation of activities due to disability; Z86.73 Personal history of transient ischemic attack (TIA), and cerebral infarction without residual deficits | CPT/HCPCS: 97010; 97110; 97140 ==

== ENCOUNTER → 2025-03-17 10:30 | Outpatient (REF) | payer MEDICARE, SELFPAY ==
[2025-03-17 13:31] LABS: Ferritin 62.5 ng/ml (17.9-464.0)
[2025-03-17 13:45] LABS: Vitamin B12 499 pg/ml (239-931)
== END ==
LOC: HWLAB 10:30
PROVIDERS: ATTENDING PHYSICIAN Registered Nurse Critical Care Medicine; FAMILY PHYSICIAN Family Medicine
DX: R79.0 Abnormal level of blood mineral (principal); R51.9 Headache, unspecified; R79.89 Other specified abnormal findings of blood chemistry; G25.81 Restless legs syndrome
CPT/HCPCS: 36415; 82607; 82728; 85652

== ENCOUNTER → 2025-05-07 07:52 | Outpatient (REF) | payer MEDICARE, SELFPAY | LOC: RAD 07:52 | PROVIDERS: ATTENDING PHYSICIAN Surgery Vascular Surgery; FAMILY PHYSICIAN Family Medicine | DX: I65.22 Occlusion and stenosis of left carotid artery (principal) | CPT/HCPCS: 93880 ==

== ENCOUNTER → 2025-07-16 16:43 | Outpatient (REF) | payer MEDICARE, SELFPAY | LOC: PAVMRI 16:43 | PROVIDERS: ATTENDING PHYSICIAN Orthopaedic Surgery; FAMILY PHYSICIAN Family Medicine | DX: M54.16 Radiculopathy, lumbar region (principal) | CPT/HCPCS: 72148 ==